=== PATIENT | female | born 1960 | race Caucasian/White ===

== ENCOUNTER → 2020-04-24 08:04 | Outpatient (BNVA) | payer OTHER, SELFPAY | PROVIDERS: PCP Specialist; Referring Provider Specialist; Visit Provider Student in an Organized Health Care Education/Training Program | DX: Z76.89 Persons encountering health services in other specified circumstances (principal) ==

== ENCOUNTER → 2021-04-25 07:55 | Outpatient (BNVA) | payer OTHER, SELFPAY | PROVIDERS: PCP Specialist; Visit Provider Nurse Practitioner Family ==

== ENCOUNTER → 2022-04-25 07:53 | Outpatient (BNVA) | payer OTHER, SELFPAY | PROVIDERS: PCP Specialist; Visit Provider Nurse Practitioner Family | DX: Z13.89 Encounter for screening for other disorder (principal) ==

== ENCOUNTER → 2022-05-02 08:03 | Outpatient (BNVA) | payer OTHER, SELFPAY | PROVIDERS: PCP Specialist; Visit Provider Nurse Practitioner Family | DX: Z13.89 Encounter for screening for other disorder (principal) ==

== ENCOUNTER 2022-07-03 07:57 | Outpatient (REF) | payer OTHER, SELFPAY ==
[2022-07-03 11:28] LABS: Amphetamine Screen Urine Not Detected (Not Detect); Barbiturates, Urine Not Detected (Not Detect); Benzodiazepines Screen Urine Not Detected (Not Detect); Cannabinoid Screen Urine Not Detected (Not Detect); Cocaine Screen Urine Not Detected (Not Detect); Fentanyl, urine Not Detected (Not Detect); Opiate Screen Urine Not Detected (Not Detect); Phencyclidine Screen Urine Not Detected (Not Detect)
== END 2022-07-03 07:58 | disposition home or self-care (01) ==
LOC: HO.10HDL 07:57
PROVIDERS: Visit Provider Nurse Practitioner Family
DX: Z51.81 Encounter for therapeutic drug level monitoring (principal); Z79.899 Other long term (current) drug therapy
CPT/HCPCS: 80307; 80373

== ENCOUNTER 2022-11-21 10:05 | Outpatient (AMB) | payer OTHER, SELFPAY ==
[2022-11-21 10:06] VITALS: BP 116/62; PULSE 99; TEMP 2.9; TEMP 37.2; O2SAT 94; BMI 25.4
--- NOTE | 2022-11-21 10:06 | A.OFFVIS_ITS ---
Intake Vital Signs 11/21/22 10:06 Height 5 ft 2.5 in Weight 140 lb 14.006 oz BMI 25.4 BP 116/62 Blood Pressure Location Rt brachial Position Sitting Pulse 99 Pulse Source Pulse Oximeter Temp 37.2 F L Temp Source Skin Pulse Oximetry (%) 94 Intake Visit Reasons: FM Intake Note: Pt seen to for FM follow up. Topographical Field Assistant Required: No Accompanied by: Self / Same As Patient Allergies prochlorperazine [From Compazine] Allergy (Verified 11/21/22 10:08) Nausea Medication List - Last Reconciled 11/21/22 by Sherrill Brink MD amitriptyline 50 mg (2 x 25 mg) PO BEDTIME atorvastatin 20 mg PO DAILY tramadol 50 mg PO Q6H HPI HPI Comments History of Present Illness Details 62yoF presents for follow-up of fibromyalgia. She was last seen by Hedy Coronado 05/12. Continues on tramadol 50 mg 4 times a day. She has been having intermittent pain on the outside of her left hip.. Usually worse at night. Improves as she gets up and walks. Mentions that she has CLL and her most recent white [place] was [address]. She states that she might be starting treatment for CLL if her hemoglobin or platelets drop. [facility] Medical History Chronic lymphocytic leukemia Fibromyalgia Surgical History Hx of tubal ligation S/P removal of left ovary Social History Alcohol intake: never Cigarettes Per Day: 10 Years Smoked: 20 Review of Systems [facility] myalgias and Reports arthralgias Physical Exam Vital Signs: Last Vital Signs Temp 37.2 F L 11/21/22 10:06 Pulse 99 11/21/22 10:06 BP 116/62 11/21/22 10:06 Pulse Ox 94 11/21/22 10:06 BMI result Body Mass Index 25.4 Const General: cooperative, healthy appearing and comfortable Nutritional Appearance: average body habitus Orientation/consciousness: patient oriented x3 Limitations: no limitations HEENT Head: Yes normocephalic and Yes atraumatic Mouth: moist mucous membranes Resp Effort & Inspection: normal respiratory effort and able to speak in complete sentences Auscultation: clear to auscultation bilaterally Cardio Rate: regular rate Rhythm: regular rhythm GI Inspection: No distended Palpation (GI): Soft to palpation and nontender Neuro General: patient oriented x3 Extrem Other: Osteoarthritic changes of both hands with Casandra's and Heberden's nodes. Nontender. Mild Left trochanteric bursa area tenderness Assessment & Plan Assessment & Plan (1) Fibromyalgia: Code(s): M79.7 - Fibromyalgia Plan: Patient's fibromyalgia appears stable.? Continue amitriptyline and tramadol.? Follow-up 6 months or sooner if needed. (2) Trochanteric bursitis, left hip: Code(s): M70.62 - Trochanteric bursitis, left hip Plan: I provided patient with a printout of home exercises for greater trochanteric pain syndrome Coding Level of Care Code Est Pt Level 3 (79935) Diagnoses Fibromyalgia M79.7 Trochanteric bursitis, left hip M70.62
== END 2022-11-21 10:32 | disposition home or self-care (01) ==
PROVIDERS: PCP Specialist; Visit Provider Student in an Organized Health Care Education/Training Program
DX: M79.7 Fibromyalgia (principal); M70.62 Trochanteric bursitis, left hip
CPT/HCPCS: 99213

== ENCOUNTER → 2022-11-21 10:05 | Outpatient (BNVA) | payer OTHER, SELFPAY | PROVIDERS: PCP Specialist; Visit Provider Student in an Organized Health Care Education/Training Program ==

== ENCOUNTER 2023-06-15 07:41 | Outpatient (AMB) | payer OTHER, SELFPAY ==
[2023-06-15 07:46] VITALS: BP 124/68; PULSE 101; TEMP 36.5; O2SAT 95; BMI 24.4
--- NOTE | 2023-06-15 07:46 | A.OFFVIS_ITS ---
Intake Vital Signs 06/15/23 07:46 Height 5 ft 2.5 in Weight 135 lb 12.876 oz BMI 24.4 BP 124/68 Blood Pressure Location Rt brachial Position Sitting Pulse 101 H Pulse Source Pulse Oximeter Temp 97.7 F Temp Source Skin Pulse Oximetry (%) 95 Oxygen Delivery Method Room Air Intake Visit Reasons: FMS Intake Note: Patient last seen 11/21/22 presents today for follow up. Pole Cutter Required: No Accompanied by: Self / Same As Patient Allergies prochlorperazine [From Compazine] Allergy (Verified 06/15/23 07:51) Nausea Medication List - Last Reconciled 06/15/23 by Sherrill Brink MD amitriptyline 50 mg (2 x 25 mg) PO BEDTIME atorvastatin 20 mg PO DAILY tramadol 50 mg PO Q6H HPI HPI Comments History of Present Illness Details 62yoF presents for follow-up of fibromyalgia. She was last seen 11/2022 Continues on tramadol 50 mg 4 times a day. States that her pain is a little bit worse recently. She believes she has multiple allergies. She is snoring at night and will be evaluated by ENT soon. She does not believe that she stops breathing or gasps for air. Mentions that she has CLL and her most recent white count was 95 K and not coming down. She states that she might be starting treatment for CLL if her hemoglobin or platelets drop. [facility] Medical History Chronic lymphocytic leukemia Fibromyalgia Surgical History S/P removal of left ovary Hx of tubal ligation Social History Alcohol intake: never Patient Tobacco Use Status: Current everyday Tobacco user Cigarettes Per Day: 10 Years Smoked: 20 Review of Systems [facility] Reports myalgias and Reports arthralgias Physical Exam Vital Signs: Last Vital Signs Temp 97.7 F 06/15/23 07:46 Pulse 101 H 06/15/23 07:46 BP 124/68 06/15/23 07:46 Pulse Ox 95 06/15/23 07:46 Oxygen Delivery Method Room Air 06/15/23 07:46 BMI result Body Mass Index 24.4 Const General: cooperative, healthy appearing and comfortable Nutritional Appearance: average body habitus Orientation/consciousness: patient oriented x3 Limitations: no limitations HEENT Head: Yes normocephalic and Yes atraumatic Resp Effort & Inspection: normal respiratory effort and able to speak in complete sentences Cardio Rate: regular rate Rhythm: regular rhythm GI Inspection: No distended Palpation (GI): Soft to palpation and nontender Neuro General: patient oriented x3 Extrem Other: Osteoarthritic changes of both hands with Casandra's and Heberden's nodes. Nontender. Multiple fibromyalgia tender points Assessment & Plan Assessment & Plan (1) Fibromyalgia: Code(s): M79.7 - Fibromyalgia Plan: 62-year-old female with fibromyalgia returns for follow-up. On tramadol 50 mg q.i.d.. Doing a little worse overall. Has been snoring recently. States that she will be evaluated by ENT soon. I suggested a sleep study to rule out obstructive sleep apnea Plan I spent 15 minutes reviewing patient's chart, evaluating patient, counseling patient and documenting in the chart Medications: Refilled tramadol 50 mg PO Q6H 120 tabs 5RF M70.62 - Trochanteric bursitis, left hip Coding Level of Care Code Est Pt Level 3 (41412) Diagnoses Fibromyalgia M79.7
== END 2023-06-15 08:34 | disposition home or self-care (01) ==
PROVIDERS: PCP Specialist; Visit Provider Student in an Organized Health Care Education/Training Program
DX: M79.7 Fibromyalgia (principal)
CPT/HCPCS: 99213

== ENCOUNTER → 2023-06-15 07:41 | Outpatient (BNVA) | payer OTHER, SELFPAY | PROVIDERS: PCP Specialist; Visit Provider Student in an Organized Health Care Education/Training Program ==

== ENCOUNTER 2023-12-14 07:57 | Outpatient (AMB) | payer OTHER, SELFPAY ==
--- NOTE | 2023-12-14 08:05 | MHC.OFFVIS ---
Vital Signs 12/14/23 08:07 Height 5 ft 2.5 in Weight 132 lb 7.965 oz BMI 23.8 BP 112/60 Blood Pressure Location Rt brachial Position Sitting Pulse 74 Pulse Source Pulse Oximeter Pulse Oximetry (%) 97 Oxygen Delivery Method Simple Mask Intake Visit Reasons: FMS Intake Note: Patient presents for FMS. Allergies prochlorperazine [From Compazine] Allergy (Verified 12/14/23 08:06) Nausea Medication List - Last Reconciled 12/14/23 by Sherrill Brink MD amitriptyline 50 mg (2 x 25 mg) PO BEDTIME atorvastatin 20 mg PO DAILY tramadol 50 mg PO Q6H HPI Comments Details: 63yoF presents for follow-up of fibromyalgia. She was last seen 05/2023 Continues on tramadol 50 mg 4 times a day. States that her pain fluctuates. But stable overall. She states that she might be starting treatment for CLL if her hemoglobin drops below 10 or platelets drop. [facility] Medical History Chronic lymphocytic leukemia Fibromyalgia Surgical History S/P removal of left ovary Hx of tubal ligation Social History Alcohol intake: never Patient Tobacco Use Status: Current everyday Tobacco user Cigarettes Per Day: 10 Years Smoked: 20 Review of Systems [facility] myalgias and Reports arthralgias Physical Exam Vital Signs: Last Vital Signs Pulse 74 12/14/23 08:07 BP 112/60 12/14/23 08:07 Pulse Ox 97 12/14/23 08:07 Oxygen Delivery Method Simple Mask 12/14/23 08:07 BMI result Body Mass Index 23.8 Const General: cooperative, healthy appearing and comfortable Nutritional Appearance: average body habitus Orientation/consciousness: patient oriented x3 Limitations: no limitations HEENT Head: Yes normocephalic and Yes atraumatic Resp Effort & Inspection: normal respiratory effort and able to speak in complete sentences Cardio Rate: regular rate Rhythm: regular rhythm GI Inspection: No distended Palpation (GI): Soft to palpation and nontender Neuro General: patient oriented x3 Extrem Other: Osteoarthritic changes of both hands with Casandra's and Heberden's nodes. Nontender. Multiple fibromyalgia tender points Assessment & Plan Assessment & Plan (1) Fibromyalgia: Code(s): M79.7 - Fibromyalgia Category: Medical Plan: 63-year-old female with fibromyalgia returns for follow-up. On tramadol 50 mg q.i.d.. Symptoms stable overall. Tramadol refilled. Follow-up in 6 months Plan I spent 15 minutes reviewing patient's chart, evaluating patient, counseling patient and documenting in the chart Medications: Refilled tramadol 50 mg PO Q6H 120 tabs 5RF M70.62 - Trochanteric bursitis, left hip Coding Level of Care Code Est Pt Level 3 (94366) Diagnoses Fibromyalgia M79.7
[2023-12-14 08:07] VITALS: BP 112/60; PULSE 74; O2SAT 97; BMI 23.8
== END 2023-12-14 08:37 | disposition home or self-care (01) ==
PROVIDERS: PCP Specialist; Visit Provider Student in an Organized Health Care Education/Training Program
DX: M79.7 Fibromyalgia (principal)
CPT/HCPCS: 99213

== ENCOUNTER → 2023-12-14 07:57 | Outpatient (BNVA) | payer OTHER, SELFPAY | PROVIDERS: PCP Specialist; Visit Provider Student in an Organized Health Care Education/Training Program ==

== ENCOUNTER → 2024-06-15 07:57 | Outpatient (BNVA) | payer OTHER, SELFPAY | PROVIDERS: PCP Specialist; Visit Provider Student in an Organized Health Care Education/Training Program ==

== ENCOUNTER 2024-06-15 07:58 | Outpatient (AMB) | payer OTHER, SELFPAY ==
--- OUTSIDE RECORDS SUMMARY | 2024-06-15 08:03 | XMS_ITS | Clinical Summary ---
Author Organization [facility] [address] Address [address] [place] [address] Phone Care Team Providers Care Industrial Commercial Groundskeeper Name Role Phone Jus Reed MD Primary Care Provider [phone] Allergies Active Allergy Reactions Criticality Noted Date Comments Prochlorperazine Nausea Only Low 08/04/2018 Medications amitriptyline (ELAVIL) 25 mg tablet Take 2 tablets (50 mg total) by mouth at bedtime. 06/26/2017 Active atorvastatin (LIPITOR) 20 mg tablet Take 1 tablet (20 mg total) by mouth 1 (one) time each day. 04/13/2023 Active cetirizine (ZyrTEC) 10 mg tablet Take 1 tablet (10 mg total) by mouth 1 (one) time each day. Active traMADoL (ULTRAM) 50 mg tablet Take 1 tablet (50 mg total) by mouth every 6 hours as needed. Max Daily Amount: 200 mg Active multivitamin (MULTIPLE VITAMINS ORAL) Take by mouth 1 (one) time each day. Active Active Problems Problem Noted Date Diagnosed Date Prediabetes 03/23/2023 Cigarette smoker 09/12/2020 CLL (chronic lymphocytic leukemia) 12/02/2018 Fibromyalgia 07/21/2018 Mixed hyperlipidemia 05/26/2017 Encounters Date Type Department Care Team Description 05/20/2024 Telephone Hematology and Oncology [address] [phone] Razia Everett MD 05/18/2024 Telephone Hematology and Oncology [address] [phone] Kvng Carvalho MD from Last 3 Months Surgical History Surgery Date Site/Laterality Comments SHOULDER SURGERY 2000 Left PROCEDURE:SHOULDER SURGERY;COMMENT:tumor excision FOOT NEUROMA SURGERY 2002 Left PROCEDURE:FOOT NEUROMA SURGERY COLONOSCOPY PROCEDURE:COLONOSCOPY SALPINGOOPHORECTOMY 08/06/2018 N/A PROCEDURE:LAPAROSCOPIC SALPINGOOPHERECTOMY;COMMENT:Procedure: LAPAROSCOPY SALPINGO OOPHERECTOMY; Surgeon: Lucie Quezada MD; Location: [facility]; Service: Gynecology; Laterality: N/A; HYSTEROSCOPY 08/06/2018 N/A PROCEDURE:HYSTEROSCOPY;COMMENT:Procedu re: HYSTEROSCOPY D&C; Surgeon: Lucie Quezada MD; Location: [facility]; Service: Gynecology; Laterality: N/A; Medical History Medical History Date Comments Fibromyalgia DX:Fibromyalgia Hypercholesteremia DX:Hyperchole steremia GERD (gastroesophageal reflux disease) DX:GERD (gastroesophageal reflux disease) Depression DX:Depression Lymphoma (CMS/HCC) DX:Lymphoma ( HCC) Family History Medical History Relation Name Comments Heart disease Father Leukemia Father Heart disease Mother Relation Name Status Comments Father Mother Social History Tobacco Use Types Packs/Day Years Used Date Smoking Tobacco: Every Day Cigarettes Smokeless Tobacco: Never Alcohol Use Standard Drinks/Week Comments No 0 (1 standard drink = 0.6 oz pur e alcohol) Comments Unknown Sex and Gender Information Value Date Recorded Sex Assigned at Not on file Legal Sex Female 7:33 AM EST Gender Identity Not on file Sexual Orientation Not on file Obstetrics History Last Filed Vital Signs Vital Sign Reading Time Taken Comments Blood Pressure 128/45 02/23/2024 3:58 PM EST Pulse 79 02/23/2024 3:58 PM EST Temperature 36.3 ??C (97.4 ??F) 02/23/2024 3:58 PM ES T Respiratory Rate 18 02/23/2024 3:58 PM EST Oxygen Saturation 96% 02/23/2024 3:58 PM EST Inhaled Oxygen Concentration - - Weight 58.7 kg (129 lb 6.4 oz) 02/23/2024 3:58 P M EST Height 160 cm (5' 3 ) 03/23/2023 2:22 PM EST Body Mass Index 22.92 03/23/2023 2:22 PM EST Plan of Treatment Upcoming Encounters Date Type Department Care Team (Late st Contact Info) Description 07/14/2024 4:00 PM EDT Clinic Lab Collection [facility] [address] [place] [phone] 07/14/2024 4:20 PM EDT Office Visit [facility] [place] [address] [place] [phone] Razia Everett MD [address] [place] [id number] Health Maintenance Due Date Last Done Comments Breast Cancer Screening 1960 COVID-19 Vaccine (#1) 1966 DTaP,Tdap,and Td Vaccines (1 - Tdap) 1980 Pneumococcal Vaccine: 50+ Years (1 of 2 - PCV) 1980 Pneumococcal Vaccine: Pediatrics (0 to 5 Years) and At-Risk Patients (6 to 64 Years) (1 of 2 - PCV) 1980 Zoster Vaccines (1 of 2) 1980 Cervical Cancer Screening: P ap Smear 10/12/2020 10/12/2017, 10/12/2017 Colorectal Cancer Screening: Colonoscopy 03/27/2022 Depression Screening 03/27/2022 HIV Screening 03/27/2022 Hepatitis C Screening 03/27/2022 Social Influencers of Health Screening 03/27/2022 Influenza Vaccine (#1) 2023 Cholesterol Screening (Lipid Panel) 03/16/2028 03/16/2023 RSV Immunization Patients 60 + Years Old (1 - 1-dose 75+ series) 2036 HIB Vaccines Aged Out No longer eligi ble based on patient's age to complete this topic HPV Vaccines Aged Out No longer eligi ble based on patient's age to complete this topic Hepatitis A Vaccines Aged Out No long er eligible based on patient's age to complete this topic Hepatitis B Vaccines Aged Out No long er eligible based on patient's age to complete this topic IPV Vaccines Aged Out No longer eligi ble based on patient's age to complete this topic MMR Vaccines Aged Out No longer eligi ble based on patient's age to complete this topic Meningococcal ACWY Vaccine Aged Out N o longer eligible based on patient's age to complete this topic Meningococcal B Vacine Aged Out No lo nger eligible based on patient's age to complete this topic RSV Immunization Patients Under 20 months Aged Out No longer eligible b ased on patient's age to complete this topic Varicella Vaccines Aged Out No longer eligible based on patient's age to complete this topic Procedures Procedure Name Priority Date/Time Associated Diagnosis Comments MANUAL DIFFERENTIAL Routine 05/18/2024 2 :08 PM EST Iron deficiency anemia, unspecified iron deficiency anemia type CBC WITH AUTO DIFFERENTIAL Routine 05/18/2024 2:08 PM EST Iron deficiency anemia, unspecified iron deficiency anemia type FERRITIN Routine 05/18/2024 2:08 PM EST Chronic lymphocytic leukemia of B-cell type not having achieved remission (CMS/HCC) Iron deficiency anemia, unspecified iron deficiency anemia type IRON AND TIBC Routine 05/18/2024 2:08 PM EST Chronic lymphocytic leukemia of B-cell type not having achieved remission (CMS/HCC) Iron deficiency anemia, unspecified iron deficiency anemia type CBC AND DIFFERENTIAL Routine 05/18/2024 2:08 PM EST Iron deficiency anemia, unspecified iron deficiency anemia type LIPID PANEL Routine 03/16/2023 PAP SMEAR Routine 10/12/2017 4:00 PM EDT from Last 3 Months or Most Recently Relevant to Health Maintenance Results * (ABNORMAL) CBC auto differential (05/18/2024 2:08 PM EST) WBC 115.8(HH) 4.0 - 10.5 K/mcL LAB HEMETOLOGY METHOD 05/18/2024 8:42 PM EST [facility] Comment:Verified by repeat a nalysis RBC 4.13(L) 4.20 - 5.40 M/mcL LAB HEMETOLOGY METHOD 05/18/2024 8:42 PM EST [facility] Hemoglobin 11.9(L) 12.5 - 16.0 g/dL LAB HEMETOLOGY METHOD 05/18/2024 8:42 PM EST [facility] Hematocrit 38.3 37.0 - 47.0 % LAB HEMETOLOGY METHOD 05/18/2024 8:42 PM EST [facility] MCV 92.8 78.0 - 100.0 FL LAB HEMETOLOGY METHOD 05/18/2024 8:42 PM EST [facility] MCH 28.9 25.0 - 33.0 pcg LAB HEMETOLOGY METHOD 05/18/2024 8:42 PM EST [facility] MCHC 31.1(L) 32.0 - 36.0 g/dL LAB HEMETOLOGY METHOD 05/18/2024 8:42 PM EST [facility] RDW 14.7 12.1 - 16.2 % LAB HEMETOLOGY METHOD 05/18/2024 8:42 PM EST [facility] Platelets 207 150 - 450 K/mcL LAB HEMETOLOGY METHOD 05/18/2024 8:42 PM EST [facility] MPV 8.1 7.4 - 11.4 FL LAB HEMETOLOGY METHOD 05/18/2024 8:42 PM EST [facility] Blood Venous blood specimen / Unknown Venipuncture / Unknown 05/18/2024 2:08 PM EST 05/18/2024 2:08 PM EST us Razia Everett MD LAB BLOOD ORDERABLES Fin al Result [facility] [address] [place] [address], * (ABNORMAL) Iron and TIBC (05/18/2024 2:08 PM EST) Iron 58 37 - 170 mcg/dL LAB CHEMISTRY METHOD 05/18/2024 6:39 PM EST [facility] UIBC 399(H) 155 - 355 mcg/dL LAB CHEMISTRY METHOD 05/18/2024 6:39 PM EST [facility] TIBC 457(H) 250 - 450 mcg/dL LAB CHEMISTRY METHOD 05/18/2024 6:39 PM EST [facility] Iron Saturation 13(L) 20 - 45 % LAB CHEMISTRY METHOD 05/18/2024 6:39 PM EST [facility] Blood Venous blood specimen / Unknown Venipuncture / Unknown 05/18/2024 2:08 PM EST 05/18/2024 2:08 PM EST Razia Everett MD LAB BLOOD ORDERABLES Fin al Result [facility] [address] [place] [address], * (ABNORMAL) Manual differential (05/18/2024 2:08 PM EST) Neutrophils % 1.0(L) 44.0 - 74.0 % LAB HEMETOLOGY METHOD 05/18/2024 8:42 PM [facility] Lymphocytes % 95.0(H) 20.0 - 48.0 % LAB HEMETOLOGY METHOD 05/18/2024 8:42 PM [facility] Comment:Differential perform ed on smear utilizing albumin Monocytes % 1.0(L) 2.0 - 12.0 % LAB HEMETOLOGY METHOD 05/18/2024 8:42 PM [facility] Eosinophils % 2.0 0.0 - 6.0 % LAB HEMETOLOGY METHOD 05/18/2024 8:42 PM [facility] Basophils % 1.0 0.0 - 2.0 % LAB HEMETOLOGY METHOD 05/18/2024 8:42 PM [facility] Neutrophils Absolute 1.16(L) 1.80 - 7.80 K/mcL LAB HEMETOLOGY METHOD 05/18/2024 8:42 PM EST [facility] Lymphocytes Absolute 110.01(H) 1.00 - 3.20 K/mcL LAB HEMETOLOGY METHOD 05/18/2024 8:42 PM EST [facility] Monocytes Absolute 1.16(H) 0.00 - 0.80 K/mcL LAB HEMETOLOGY METHOD 05/18/2024 8:42 PM EST [facility] Eosinophils Absolute 2.32(H) 0.00 - 0.50 K/mcL LAB HEMETOLOGY METHOD 05/18/2024 8:42 PM EST [facility] Basophils Absolute 1.16(H) 0.00 - 0.20 K/mcL LAB HEMETOLOGY METHOD 05/18/2024 8:42 PM EST [facility] Smudge Cells Present LAB HEMETOLOGY METHOD 05/18/2024 8:42 PM EST [facility] Polychromasia Present Occasional LAB HEMETOLOGY METHOD 05/18/2024 8:42 PM EST [facility] Spherocytes Present Occasional LAB HEMETOLOGY METHOD 05/18/2024 8:42 PM EST [facility] Platelet Estimate Normal LAB HEMETOLOGY METHOD 05/18/2024 8:42 PM EST [facility] Blood Venous blood specimen / Unknown Venipuncture / Unknown 05/18/2024 2:08 PM EST 05/18/2024 2:08 PM EST Razia Everett MD LAB BLOOD ORDERABLES Fin al Result [facility] [address] [place] [address], [place] [phone] * Ferritin (05/18/2024 2:08 PM EST) Ferritin 15 10 - 120 ng/mL LAB CHEMISTRY METHOD 05/18/2024 6:54 PM EST [facility] Blood Venous blood specimen / Unknown Venipuncture / Unknown 05/18/2024 2:08 PM EST 05/18/2024 2:08 PM EST Razia Everett MD LAB BLOOD ORDERABLES Fin al Result [facility] [address] [place] [address], [place] [phone] * (ABNORMAL) Lipid panel (03/16/2023) [facility] Triglycerides 164 >=150 mg/dL Cholesterol 173(A) >=200 mg/dL HDL 62 >=50 mg/dL LDL Cholesterol 85(A) >=100 mg/dL Blood Venous blood specimen / Unknown [facility] Provider LAB BLOOD ORDERABLES [place] l Result * Pap smear (10/12/2017 4:00 PM EDT) [facility] Case Results Patient Name: JOSE HANNA MR#: [id number] Collected Date: 10/12/2017 Reported Date: 10/19/2017 Specimen #[id number] Final Diagnosis Satisfactory for evaluation. ??Endocervical transformation zone component present. Negative for Intraepithelial Lesion or Malignancy. Reactive cellular changes noted. ?? Clinical Diagnosis Z01.419 Source: A: ThinPrep Imaged Pap Cervical-SC B: HPV Mandatory Electronically Signed Out Franca Gay MD Addenda/Procedures HPV DNA PROBE, MANDATORY Ordered: ?? 10/13/2017 Reported: ??10/14/2017 HPV HIGH RISK: NEGATIVE None of the following High Risk human papillomavirus (HPV) types has been detected: 16,18,31,33,35,39, 45,51,52,56,58,59, 66,and 68. ??The Aptima HPV nucleic acid amplification assay manufactured by [facility] and performed on the [employer] how [employer] [place] System was used for the qualitative detection of E6/E7 viral messenger RNA (mRNA) from 14 high-risk types of (HPV) in cervical specimens. <<NOTE>> Clinical guidelines for follow up of patients screened with HPV testing can be found in the following reference: Thiago WK , et al. Use of primary high risk human papillomavirus testing for cervical cancer screening: Interim clinical guidance, Gynecol Oncol. 2015 May, 136(2):178-82. Procedure/Addend um Electronically Signed Out By System Interface Note: The Pap test is a screening test with an inherent false negative rate. Automated prescreening of all liquid based specimens is performed by the [employer] System unless otherwise stated. Test Performed by: [address] ??[id number] Hiram López M.D. Director HISTORICAL TESTING LAB RESULTING AGENCY Comment:MR#: [id number] 10/12/2017 4:00 PM EDT Irma Whittington MD LAB CYTOLOGY ORDERABLES Final Result HISTORICAL TESTING LAB RESULTING AGENCY from Last 3 Months or Most Recently Relevant to Health Maintenance Insurance [facility] Care Teams Industrial Commercial Groundskeeper Relationship Specialty Start Date End Date Jus Reed MD PCP - General Internal Medicine 06/27/16
--- OUTSIDE RECORDS SUMMARY | 2024-06-15 08:03 | XMS_ITS | Clinical Summary ---
Author Organization [facility] Address [address] [place] [id number] Care Team Providers Care Smash Hand Name Role Phone Jus Reed MD Primary Care Provider Unavailab le Allergies Active Allergy Reactions Criticality Noted Date Comments Prochlorperazine Nausea Only Low 08/04/2018 Medications Medication Sig Dispensed Refills Start Date End Date Status amitriptyline (ELAVIL) tablet 25 mg TAKE 2 TABLETS BY MOUTH ONCE A DAY AT BEDTIME 5 06/26/2017 Active traMADol (ULTRAM) 50 MG tablet Take 50 mg by mouth every 6 (six) hours as needed for pain. 0 Active Multiple Vitamins-Minerals (MULTIVITAMIN ADULT PO) Take by mouth. 0 Active cetirizine (ZyrTEC) 10 MG tablet Take 1 tablet (10 mg total) by mouth daily. 0 Active predniSONE (DELTASONE) tablet 10 mg Take 4 tablets by mouth with food daily for 3 days, then 3 tablets for 3 days, then 2 tablets for 3 days, then 1 tablets for 3 days 39 tablet 0 09/03/2023 Active atorvastatin (LIPITOR) tablet 20 mg TAKE 1 TABLET BY MOUTH EVERY DAY 90 tablet 0 10/26/2023 Active Active Problems Problem Noted Date Diagnosed Date Prediabetes 03/23/2023 Cigarette smoker 09/12/2020 CLL (chronic lymphocytic leukemia) 12/02/2018 Fibromyalgia 07/21/2018 Mixed hyperlipidemia 05/26/2017 Resolved Problems Problem Noted Date Diagnosed Date Resolved Date Lymphocytosis 10/07/2017 12/02/2018 Family History Medical History Relation Name Comments Heart disease Father Leukemia Father Heart disease Mother Relation Name Status Comments Father Mother Social History Tobacco Use Types Packs/Day Years Used Date Smoking Tobacco: Every Day Cigarettes 0.5 20 Smokeless Tobacco: Never Tobacco Cessation:Ready to Q uit: Not Asked; Counseling Given: Not Answered Comments:1/2 a pack a day Alcohol Use Standard Drinks/Week Comments No 0 (1 standard drink = 0.6 oz pur e alcohol) Sex and Gender Information Value Date Recorded Sex Assigned at Female 08/03/2018 10:52 AM EDT Gender Identity Not on file Sexual Orientation Not on file Job Start Date Occupation Industry Not on file Not on file Not on file Last Filed Vital Signs Vital Sign Reading Time Taken Comments Blood Pressure 121/50 01/14/2024 12:05 PM EDT Pulse 70 01/14/2024 12:05 PM EDT Temperature 36.2 ??C (97.2 ??F) 01/14/2024 12:05 PM E DT Respiratory Rate 18 01/14/2024 12:05 PM EDT Oxygen Saturation 99% 01/14/2024 12:05 PM EDT Inhaled Oxygen Concentration - - Weight 59.2 kg (130 lb 9.6 oz) 01/14/2024 12:05 PM EDT Height 160 cm (5' 3 ) 03/23/2023 2:22 PM EST Body Mass Index 23.13 03/23/2023 2:22 PM EST Plan of Treatment Health Maintenance Due Date Last Done Comments Hepatitis C Screening 1961 COVID-19 Vaccine (#1) 1966 Pneumococcal Vaccine (1 of 2 - PCV) 07/05/1967 Depression Screening 1973 Tobacco Cessation Counseling 07/05/1979 DTap / Tdap / Td (1 - Tdap) 1980 Shingrix-Zoster Vaccine (1 of 2) 1980 Colon Cancer Screening (Colonoscopy) 2006 Breast Cancer Screening (Mammogram) 07/05/2011 Cervical Cancer Screening (Pap Smear) 10/12/2020 10/12/2017, 12/06/2012 RSV Adult > 60+ Yrs or (1 - Risk 60-74 years 1-dose series) 2021 BMI Counseling 05/29/2023 05/29/2022, 05/0 09/2021, 10/05/2020, Additional history exists Influenza Vaccine (#1) 2023 Preventative Health Evaluation 03/23/2024 03/23/2023, 02/11/2022, 09/12/2020, Additional history exists Hepatitis B Vaccines Aged Out No long er eligible based on patient's age to complete this topic RSV Ped < 20 months Aged Out No longe r eligible based on patient's age to complete this topic Advance Directives For more information, please contact: [phone] Latest Code Status on File Code Status Date Activated Date Inactivated Comments Full Code 08/06/2018 5:40 AM 08/06/2018 8:14 PM This code status was ascertained in the following way: discussion with patient . Care Teams Smash Hand Relationship Specialty Start Date End Date Jus Reed MD PCP - General Internal Medicine 06/27/16
--- OUTSIDE RECORDS SUMMARY | 2024-06-15 08:03 | XMS_ITS | Encounter Summary ---
Author Organization [facility] Address [address] [place] [address] Care Team Providers Care Medical Case Worker Name Role Phone Jus Reed MD Primary Care Provider [phone] Encounter Details Date Type Department Care Team ([facility] st Contact Info) Description 05/18/2024 Telephone Hematology and Oncology - [address] [phone] Kvng Carvalho MD [address] [place] [phone] Social History Tobacco Use Types Packs/Day Years [...] on file Sexual Orientation Not on file documented as of this encounter Progress Notes * Kvng Carvalho MD - 05/18/2024 8:25 PM EST Hematology/oncology on-call fellow was notified about critical results at 7:31 PM. Lab Results Component Value Date WBC 115.8 (HH) 05/18/2024 HGB 11.9 (L) 05/18/2024 HCT 38.3 05/18/2024 MCV 92.8 05/18/2024 PLT 207 05/18/2024 She has a history of CLL on active monitoring, with a CBCs revealed lymphocyte predominant leukocytosis, her current CBCs are not far from her baseline. I will inform her primary oncologist about theCBC results. Hematology and oncology fellow documented in this encounter Plan of Treatment Upcoming Encounters Date Type Department Care Team (Late st Contact Info) Description 07/14/2024 4:00 PM EDT Clinic Lab Collection [place] [facility] [address] [place] [address] 07/14/2024 4:20 PM EDT Office Visit [place] [facility] [address] [place] [id number] Razia Everett MD [address] [place] [id number] documented as of this encounter Visit Diagnoses Not on filedocumented in this encounter Care Teams Medical Case Worker Relationship Specialty Start Date End Date Jus Reed MD PCP - General Internal Medicine 06/27/16 documented as of this encounter
--- OUTSIDE RECORDS SUMMARY | 2024-06-15 08:03 | XMS_ITS ---
Author Name [facility] Organization Unknown Results Test Name/Text Value Interpretation Date Range Source Lg Platelets Bld Ql Auto Normal Normal [id number] [facility] Polychromasia Present Occasional Normal [id number] [facility] RBC Ur Ql Auto Occasional Normal [id number] C [facility] Smudge Cells/leuk NFr Bld Manual Present Normal 754303097358 [facility] Monocytes/leuk NFr Bld Manual 1% Below low normal [id number] 2 - 12 [facility] Lymphocytes # Bld Manual 110.01K/mcL Above high normal [id number] 1 - 3.2 [facility] Eosinophil/leuk NFr Bld Manual 2% Normal [id number] 0 - 6 [facility] Monocytes # Bld Manual 1.16K/mcL Above high normal [id number] 0 - 0.8 [facility] Basophils/leuk NFr Bld Manual 1% Normal [id number] 0 - 2 [facility] Lymphocytes/leuk NFr Bld Manual 95% Above high normal [id number] 20 - 48 [facility] Neuts Seg # Bld Manual 1.16K/mcL Below low normal [id number] 1.8 - 7.8 [facility] Eosinophil # Bld Manual 2.32K/mcL Above high normal [id number] 0 - 0.5 [facility] Basophils # Bld Manual 1.16K/mcL Above high normal [id number] 0 - 0.2 [facility] Neuts Seg/leuk NFr Bld Manual 1% Below low normal [id number] 44 - 74 [facility] Hgb Bld-mCnc 11.9g/dL Below low normal [id number] 12.5 - 16 [facility] MCHC RBC Auto-mCnc 31.1g/dL Below low normal [id number] 3 2 - 36 [facility] PMV Bld Auto 8.1FL Normal [id number] 7.4 - 11.4 [facility] RBC # Bld Auto 4.13M/mcL Below low normal [id number] 4.2 - 5.4 [facility] WBC # Bld Auto 115.8K/mcL Critically high [id number] 4 - 1 0.5 [facility] RDW RBC Auto-Rto 14.7% Normal [id number] 12.1 - 16.2 [facility] MCV RBC Auto 92.8FL Normal [id number] 78 - 100 [facility] MCH RBC Qn Auto 28.9pcg Normal [id number] 25 - 33 [facility] Hct VFr Bld Auto 38.3% Normal [id number] 37 - 47 [facility] Platelet # Bld Auto 207K/mcL Normal [id number] 150 - 450 [facility] Ferritin SerPl-mCnc 15ng/mL Normal [id number] 10 - 120 [facility] TIBC SerPl-mCnc 457mcg/dL Above high normal [id number] 250 - 450 [facility] UIBC SerPl-mCnc 399mcg/dL Above high normal [id number] 155 - 355 [facility] Iron SerPl-mCnc 58mcg/dL Normal [id number] 37 - 170 [facility] Iron Satn MFr SerPl 13% Below low normal [id number] 20 - 45 [facility] MICROCYTES PRESENT Normal [id number] [facility] DIFFERENTIAL TYPE MANUAL Normal [id number] [facility] OVALOCYTES OCCASIONAL Normal [id number] [facility] NEUTS BAND NFR BLD MANUAL 1% Normal [id number] 0 - 15 [facility] MONOCYTES NFR BLD MANUAL 2% Normal [id number] 2 - 12 [facility] POLYS NFR BLD MANUAL 3% Below low normal [id number] 44 - 74 [facility] LYMPHOCYTES NFR BLD MANUAL 94% Above high normal [id number] 20 - 48 [facility] PLATELET NO. BLD AUTO 203K/uL Normal [id number] 150 - 450 [facility] RBC NO. BLD AUTO 4.24M/uL Normal [id number] 4.2 - 5.4 [facility] MCH RBC QN AUTO 29pg Normal [id number] 25 - 33 [facility] MCHC RBC AUTO MCNC 32.3g/dL Normal [id number] 32 - 36 [facility] HGB BLD MCNC 12.3g/dL Below low normal [id number] 12.5 - 16 [facility] WBC NO. BLD AUTO 90.5K/uL Above high normal [id number] 4 - 10.5 [facility] MCV RBC AUTO 89.8fL Normal [id number] 78 - 100 [facility] PMV BLD AUTO 8.3fL Normal [id number] 7.4 - 11.4 [facility] RDW RBC AUTO RTO 15% Normal [id number] 12.1 - 16.2 [facility] HCT VFR BLD AUTO 38.1% Normal [id number] 37 - 47 [facility] FERRITIN SERPL MCNC 15ng/mL Normal [id number] 10 - 120 [facility] TIBC SERPL MCNC 445ug/dL Normal [id number] 250 - 450 [facility] UIBC SERPL MCNC 383ug/dL Above high normal [id number] 155 - 355 [facility] IRON SERPL MCNC 62mcg/dL Normal [id number] 37 - 170 [facility] IRON SATN MFR SERPL 14% Below low normal [id number] 20 - 45 [facility] LDH SERPL L TO P CCNC 231U/L Above high normal [id number] 125 - 220 [facility] VIT B12 SER MCNC 761pg/mL Normal [id number] 180 - 914 [facility] FERRITIN SERPL MCNC 13ng/mL Normal [id number] 10 - 120 [facility] CALCIUM SERPL MCNC 9.4mg/dL Normal [id number] 8.4 - 10.2 [facility] ANION GAP SERPL SCNC 7mmol/L Normal [id number] 5 - 14 [facility] Glomerular filtration rate/1.73 sq M. predicted 72 Normal [id number] 60 - [facility] HCO3 SER SCNC 31mmol/L Normal [id number] 24 - 32 [facility] AST SERPL CCNC 18U/L Normal [id number] 5 - 40 [facility] GLUCOSE SERPL MCNC 118mg/dL Normal [id number] 70 - 199 [facility] BUN SERPL MCNC 16mg/dL Normal [id number] 7 - 17 [facility] CHLORIDE SERPL SCNC 103mmol/L Normal [id number] 98 - 107 [facility] ALBUMIN SERPL BCG MCNC 4.2g/dL Normal [id number] 3.5 - 5 [facility] ALP SERPL-CCNC 97U/L Normal [id number] 34 - 104 [facility] ALT SERPL CCNC 16U/L Normal [id number] 7 - 52 [facility] CREAT SERPL MCNC 0.9mg/dL Normal [id number] 0.5 - 1 [facility] SODIUM SERPL SCNC 141mmol/L Normal [id number] 135 - 145 [facility] PROT SERPL MCNC 6.6g/dL Normal [id number] 6.4 - 8.5 [facility] BILIRUB SERPL MCNC 0.3mg/dL Normal [id number] 0.3 - 1 [facility] POTASSIUM SERPL SCNC 3.8mmol/L Normal [id number] 3.5 - 5.1 [facility] TIBC SERPL MCNC 460ug/dL Above high normal [id number] 250 - 450 [facility] UIBC SERPL MCNC 389ug/dL Above high normal [id number] 155 - 355 [facility] IRON SERPL MCNC 71mcg/dL Normal [id number] 37 - 170 [facility] IRON SATN MFR SERPL 15% Below low normal [id number] 20 - 45 [facility] LDH SERPL L TO P CCNC 223U/L Above high normal [id number] 125 - 220 [facility] LYMPHOCYTES NO. BLD AUTO 81.9K/uL Above high normal [id number] 1 - 3.2 [facility] EOSINOPHIL NO. BLD AUTO 0.3K/uL Normal [id number] 0 - 0.5 [facility] MONOCYTES NFR BLD AUTO 14.4% Above high normal [id number] 2 - 12 [facility] IMMATURE GRANULOCYTE, ABSOLUTE 0.11k/uL Above high normal [id number] - 0.1 [facility] LYMPHOCYTES NFR BLD AUTO 81.6% Above high normal [id number] 20 - 48 [facility] EOSINOPHIL NFR BLD AUTO 0.3% Normal [id number] 0 - 6 [facility] NEUTROPHILS NO. BLD AUTO 3.6K/uL Normal [id number] 1.8 - 7.8 [facility] BASOPHILS NFR BLD AUTO 0.1% Normal [id number] 0 - 2 [facility] MONOCYTES NO. BLD AUTO 14.4K/uL Above high normal [id number] 0 - 0.8 [facility] NEUTROPHILS NFR BLD AUTO 3.5% Below low normal [id number] 44 - 74 [facility] IMMATURE GRANULOCYTE, PERCENT 0.1% Normal [id number] 0 - 1 [facility] BASOPHILS IN BLOOD BY AUTOMATED COUNT 0.1K/uL Normal [id number] 0 - 0.2 [facility] PLATELET NO. BLD AUTO 173K/uL Normal [id number] 150 - 450 [facility] RBC NO. BLD AUTO 4.18M/uL Below low normal [id number] 4.2 - 5.4 [facility] MCH RBC QN AUTO 27.8pg Normal [id number] 25 - 33 [facility] MCHC RBC AUTO MCNC 32g/dL Normal [id number] 32 - 36 [facility] HGB BLD MCNC 11.6g/dL Below low normal [id number] 12.5 - 16 [facility] WBC NO. BLD AUTO 100.4K/uL Above high normal [id number] 4 - 10.5 [facility] MCV RBC AUTO 86.8fL Normal [id number] 78 - 100 [facility] PMV BLD AUTO 9.7fL Normal [id number] 7.4 - 11.4 [facility] RDW RBC AUTO RTO 14.5% Normal [id number] 12.1 - 16.2 [facility] HCT VFR BLD AUTO 36.3% Below low normal [id number] 37 - 47 [facility] URATE SERPL MCNC 4.4mg/dL Normal [id number] 2.5 - 7 [facility] CALCIUM SERPL MCNC 9.2mg/dL Normal [id number] 8.4 - 10.2 [facility] ANION GAP SERPL SCNC 7mmol/L Normal [id number] 5 - 14 [facility] Glomerular filtration rate/1.73 sq M. predicted 64 Normal [id number] 60 - [facility] HCO3 SER SCNC 30mmol/L Normal [id number] 24 - 32 [facility] AST SERPL CCNC 19U/L Normal [id number] 5 - 40 [facility] GLUCOSE SERPL MCNC 75mg/dL Normal [id number] 70 - 199 [facility] BUN SERPL MCNC 18mg/dL Above high normal [id number] 7 - 17 [facility] CHLORIDE SERPL SCNC 101mmol/L Normal [id number] 98 - 107 [facility] ALBUMIN SERPL BCG MCNC 4.4g/dL Normal [id number] 3.5 - 5 [facility] ALP SERPL-CCNC 103U/L Normal [id number] 34 - 104 [facility] ALT SERPL CCNC 16U/L Normal [id number] 7 - 52 [facility] CREAT SERPL MCNC 1mg/dL Normal [id number] 0.5 - 1 [facility] SODIUM SERPL SCNC 138mmol/L Normal [id number] 135 - 145 [facility] PROT SERPL MCNC 6.3g/dL Below low normal [id number] 6.4 - 8.5 [facility] BILIRUB SERPL MCNC 0.3mg/dL Normal [id number] 0.3 - 1 [facility] POTASSIUM SERPL SCNC 3.9mmol/L Normal [id number] 3.5 - 5.1 [facility] LDH SERPL L TO P CCNC 235U/L Above high normal [id number] 125 - 220 [facility] MONOCYTES NFR BLD MANUAL 3% Normal [id number] 2 - 12 [facility] POLYS NFR BLD MANUAL 2% Below low normal [id number] 44 - 74 [facility] LYMPHOCYTES NFR BLD MANUAL 93% Above high normal [id number] 20 - 48 [facility] EOSINOPHIL NFR BLD MANUAL 2% Normal [id number] 0 - 6 [facility] HGB BLD MCNC 11.3g/dL Below low normal [id number] 12.5 - 16 [facility] PLATELET NO. BLD AUTO 222K/uL Normal [id number] 150 - 450 [facility] WBC NO. BLD AUTO 90.4K/uL Above high normal [id number] 4 - 10.5 [facility] RBC NO. BLD AUTO 4.02M/uL Below low normal [id number] 4.2 - 5.4 [facility] MCH RBC QN AUTO 28.1pg Normal [id number] 25 - 33 C [facility] MCHC RBC AUTO MCNC 31.8g/dL Below low normal [id number] 3 2 - 36 [facility] MCV RBC AUTO 88.3fL Normal [id number] 78 - 100 [facility] PMV BLD AUTO 9.7fL Normal [id number] 7.4 - 11.4 [facility] RDW RBC AUTO RTO 14.4% Normal [id number] 12.1 - 16.2 [facility] HCT VFR BLD AUTO 35.5% Below low normal [id number] 37 - 47 [facility] LYMPHOCYTES NO. BLD AUTO 107.2K/uL Above high normal [id number] 1 - 3.2 [facility] EOSINOPHIL NO. BLD AUTO 0.3K/uL Normal [id number] 0 - 0.5 [facility] MONOCYTES NFR BLD AUTO 7.6% Normal [id number] 2 - 12 [facility] IMMATURE GRANULOCYTE, ABSOLUTE 0.21k/uL Above high normal [id number] - 0.1 [facility] LYMPHOCYTES NFR BLD AUTO 87.2% Above high normal [id number] 20 - 48 [facility] EOSINOPHIL NFR BLD AUTO 0.2% Normal [id number] 0 - 6 [facility] NEUTROPHILS NO. BLD AUTO 5.7K/uL Normal [id number] 1.8 - 7.8 [facility] BASOPHILS NFR BLD AUTO 0.1% Normal [id number] 0 - 2 [facility] MONOCYTES NO. BLD AUTO 9.4K/uL Above high normal [id number] 0 - 0.8 [facility] NEUTROPHILS NFR BLD AUTO 4.7% Below low normal [id number] 44 - 74 [facility] IMMATURE GRANULOCYTE, PERCENT 0.2% Normal [id number] 0 - 1 [facility] BASOPHILS IN BLOOD BY AUTOMATED COUNT 0.2K/uL Normal [id number] 0 - 0.2 [facility] PLATELET NO. BLD AUTO 221K/uL Normal [id number] 150 - 450 [facility] RBC NO. BLD AUTO 3.88M/uL Below low normal [id number] 4.2 - 5.4 [facility] MCH RBC QN AUTO 28.9pg Normal [id number] 25 - 33 [facility] MCHC RBC AUTO MCNC 32.2g/dL Normal [id number] 32 - 36 [facility] HGB BLD MCNC 11.2g/dL Below low normal [id number] 12.5 - 16 [facility] WBC NO. BLD AUTO 123K/uL Above high normal [id number] 4 - 10.5 [facility] MCV RBC AUTO 89.7fL Normal [id number] 78 - 100 [facility] PMV BLD AUTO 9.6fL Normal [id number] 7.4 - 11.4 [facility] RDW RBC AUTO RTO 14.3% Normal [id number] 12.1 - 16.2 [facility] HCT VFR BLD AUTO 34.8% Below low normal [id number] 37 - 47 [facility] DIFFERENTIAL TYPE AUTOMATED Normal [id number] [facility] LYMPHOCYTES NO. BLD AUTO 89.5K/uL Above high normal [id number] 1 - 3.2 [facility] EOSINOPHIL NO. BLD AUTO 0.2K/uL Normal [id number] 0 - 0.5 [facility] MONOCYTES NFR BLD AUTO 1.9% Below low normal [id number] 2 - 12 [facility] LYMPHOCYTES NFR BLD AUTO 92.3% Above high normal [id number] 20 - 48 [facility] EOSINOPHIL NFR BLD AUTO 0.2% Normal [id number] 0 - 6 [facility] NEUTROPHILS NO. BLD AUTO 5.1K/uL Normal [id number] 1.8 - 7.8 [facility] BASOPHILS NFR BLD AUTO 0.3% Normal [id number] 0 - 2 [facility] MONOCYTES NO. BLD AUTO 1.9K/uL Above high normal [id number] 0 - 0.8 [facility] NEUTROPHILS NFR BLD AUTO 5.3% Below low normal [id number] 44 - 74 [facility] BASOPHILS IN BLOOD BY AUTOMATED COUNT 0.3K/uL Above high normal [id number] 0 - 0.2 [facility] PL[facility] NO. BLD AUTO 216K/uL Normal [id number] 150 - 450 [facility] RBC NO. BLD AUTO 4.22M/uL Normal [id number] 4.2 - 5.4 [facility] MCH RBC QN AUTO 29.1pg Normal 25 - 33 C [facility] MCHC RBC AUTO MCNC 32.1g/dL Normal 32 - 36 [facility] HGB BLD MCNC 12.3g/dL Below low normal 12.5 - 16 [facility] WBC NO. BLD AUTO 97K/uL Above high normal [id number] 4 - 10.5 [facility] MCV RBC AUTO 90.6fL Normal 78 - 100 [facility] PMV BLD AUTO 8.2fL Normal 7.4 - 11.4 [facility] RDW RBC AUTO RTO 14.4% Normal 12.1 - 16.2 [facility] HCT VFR BLD AUTO 38.3% Normal 37 - 47 [facility] SPECIMEN SENT TO [employer] ON 06.18.23 Normal [id number] [facility] DIFFERENTIAL TYPE MANUAL Normal [facility] [place] PRESENT Normal [facility] POLYCHROMASIA OCCASIONAL Normal [facility] MONOCYTES NFR BLD MANUAL 1% Below low normal 2 - 12 [facility] POLYS NFR BLD MANUAL 7% Below low normal 44 - 74 [facility] LYMPHOCYTES NFR BLD MANUAL 92% Above high normal 20 - 48 [facility] LDH SERPL L TO P CCNC 206U/L Normal 125 - 220 [facility] CALCIUM SERPL MCNC 9.1mg/dL Normal 8.4 - 10.2 [facility] ANION GAP SERPL SCNC 9mmol/L Normal 5 - 14 [facility] Glomerular filtration rate/1.73 sq M. predicted 84 Normal 60 - [facility] HCO3 SER SCNC 26mmol/L Normal 24 - 32 [facility] AST SERPL CCNC 16U/L Normal 5 - 40 [facility] GLUCOSE SERPL MCNC 78mg/dL Normal 70 - 199 [facility] BUN SERPL MCNC 17mg/dL Normal 7 - 17 [facility] CHLORIDE SERPL SCNC 106mmol/L Normal 98 - 107 [facility] ALBUMIN SERPL BCG MCNC 4.4g/dL Normal 3.5 - 5 [facility] ALP SERPL-CCNC 95U/L Normal 34 - 104 [facility] ALT SERPL CCNC 16U/L Normal 7 - 52 [facility] CREAT SERPL MCNC 0.8mg/dL Normal 0.5 - 1 [facility] SODIUM SERPL SCNC 141mmol/L Normal 135 - 145 [facility] PROT SERPL MCNC 6.6g/dL Normal 6.4 - 8.5 [facility] BILIRUB SERPL MCNC 0.3mg/dL Normal 0.3 - 1 [facility] POTASSIUM SERPL SCNC 4.3mmol/L Normal 3.5 - 5.1 [facility] PLATELET NO. BLD AUTO 188K/uL Normal [id number] 150 - 450 [facility] RBC NO. BLD AUTO 4.31M/uL Normal 4.2 - 5.4 [facility] MCH RBC QN AUTO 28.8pg Normal [id number] 25 - 33 [facility] MCHC RBC AUTO MCNC 32.2g/dL Normal 32 - 36 [facility] HGB BLD MCNC 12.4g/dL Below low normal [id number] 12.5 - 16 [facility] WBC NO. BLD AUTO 99.7K/uL Above high normal [id number] 4 - 10.5 [facility] MCV RBC AUTO 89.4fL Normal [id number] 78 - 100 [facility] PMV BLD AUTO 8.3fL Normal [id number] 7.4 - 11.4 [facility] RDW RBC AUTO RTO 14.6% Normal [id number] 12.1 - 16.2 [facility] HCT VFR BLD AUTO 38.6% Normal 37 - 47 [facility] DIFFERENTIAL TYPE MANUAL Normal [facility] OVALOCYTES OCCASIONAL Normal [facility] MACROC[facility] PRESENT Normal [facility] POLYS NFR BLD MANUAL 4% Below low normal 44 - 74 [facility] LYMPHOCYTES NFR BLD MANUAL 94% Above high normal 20 - 48 [facility] EOSINOPHIL NFR BLD MANUAL 2% Normal 0 - 6 [facility] PLATELET NO. BLD AUTO 220K/uL Normal 150 - 450 [facility] RBC NO. BLD AUTO 4.37M/uL Normal 4.2 - 5.4 [facility] MCH RBC QN AUTO 28.4pg Normal 25 - 33 [facility] MCHC RBC AUTO MCNC 31.6g/dL Below low normal 3 2 - 36 [facility] HGB BLD MCNC 12.4g/dL Below low normal 12.5 - 16 [facility] WBC NO. BLD AUTO 93.6K/uL Above high normal 4 - 10.5 [facility] MCV RBC AUTO 89.7fL Normal 78 - 100 [facility] PMV BLD AUTO 8fL Normal 7.4 - 11.4 [facility] RDW RBC AUTO RTO 15.2% Normal 12.1 - 16.2 [facility] HCT VFR BLD AUTO 39.2% Normal 37 - 47 [facility] CALCIUM SERPL MCNC 9.3mg/dL Normal 8.4 - 10.2 [facility] ANION GAP SERPL SCNC 7mmol/L Normal 5 - 14 [facility] Glomerular filtration rate/1.73 sq M. predicted 73 Normal 60 - [facility] HCO3 SER SCNC 28mmol/L Normal 24 - 32 CTT HS AST SERPL CCNC 18U/L Normal 5 - 40 [facility] GLUCOSE SERPL MCNC 77mg/dL Normal 70 - 199 [facility] BUN SERPL MCNC 18mg/dL Above high normal 7 - 17 [facility] CHLORIDE SERPL SCNC 102mmol/L Normal 98 - 107 [facility] ALBUMIN SERPL BCG MCNC 4.3g/dL Normal 3.5 - 5 [facility] ALP SERPL-CCNC 94U/L Normal 34 - 104 [facility] ALT SERPL CCNC 18U/L Normal 7 - 52 [facility] CREAT SERPL MCNC 0.9mg/dL Normal 0.5 - 1 [facility] SODIUM SERPL SCNC 137mmol/L Normal 135 - 145 [facility] PROT SERPL MCNC 6.8g/dL Normal 6.4 - 8.5 [facility] BILIRUB SERPL MCNC 0.3mg/dL Normal 0.3 - 1 [facility] POTASSIUM SERPL SCNC 4.1mmol/L Normal 3.5 - 5.1 [facility] LDH SERPL L TO P CCNC 197U/L Normal 125 - 220 [facility] URATE SERPL MCNC 4.4mg/dL Normal 2.5 - 7 [facility] History of Medication Use Medication Directions Dispensed Refills Start Date End Date [facility] traMADoL (ULTRAM) 50 mg tablet Take 1 tablet (50 mg total) by mouth every 6 hours as needed. Max Daily Amount: 200 mg active atorvastatin (LIPITOR) 20 mg tablet Take 1 tablet (20 mg total) by mouth 1 (one) time each day. 04/13/2023 active multivitamin (MULTIPLE VITAMINS ORAL) Take by mouth 1 (one) time each day. active cetirizine (ZyrTEC) 10 mg tablet Take 1 tablet (10 mg total) by mouth 1 (one) time each day. active amitriptyline (ELAVIL) 25 mg tablet Take 2 tablets (50 mg total) by mouth at bedtime. 06/26/2017 active cetirizine (ZyrTEC) 10 mg tablet Take 1 tablet (10 mg total) by mouth 1 (one) time each day. active cetirizine (ZyrTEC) 10 MG tablet Take 1 tablet (10 mg total) by mouth daily. active amitriptyline (ELAVIL) tablet 25 mg TAKE 2 TABLETS BY MOUTH ONCE A DAY AT BEDTIME 06/26/2017 active atorvastatin (LIPITOR) 20 mg tablet Take 1 tablet (20 mg total) by mouth 1 (one) time each day. 04/13/2023 active iopamidol (ISOVUE-370) 76 % injection 100 mL 100 mL, Intravenous, IMG once as needed, contrast, Starting on Thu01/12/24 at 0843, For 1 dose, Radiology Contrast 01/12/2024 01/12/2024 completed amitriptyline (ELAVIL) 25 mg tablet Take 2 tablets (50 mg total) by mouth at bedtime. 06/26/2017 active atorvastatin (LIPITOR) tablet 20 mg TAKE 1 TABLET BY MOUTH EVERY DAY 07/26/2023 active Problems Problem Status Onset Date Problem Type Date of Resolution Source Prediabetes active 2023-03-23 ProblemAct [facility] MARIA FERNANDA Fibromyalgia active 2018-07-21 ProblemAct [facility] SFRAN Iron deficiency anemia, unspecified iron deficiency anemia type active EncounterDiagnosisAct [facility] H Cigarette smoker active 2020-09-12 ProblemAct C T_[facility]AN CLL (chronic lymphocytic leukemia) active 2018-12-02 ProblemAct [facility] Mixed hyperlipidemia active 2017-05-26 ProblemAct [facility] Iron deficiency anemia due to chronic blood loss active EncounterDiagnosisAct [facility]NEMG
--- OUTSIDE RECORDS SUMMARY | 2024-06-15 08:03 | XMS_ITS | Encounter Summary ---
Author Organization [facility] Address [address] [place] [address] Care Team Providers Care Body Design Checker Name Role Phone Jus Reed MD Primary Care Provider [phone] Encounter Details Date Type Department Care Team (Late st Contact Info) Description 05/20/2024 Telephone Hematology and Oncology - [address] [phone] Razia Everett MD [address] [place] [id number] Social History Tobacco Use Types Packs/Day Years [...] as of this encounter Progress Notes * Razia Everett MD - 05/20/2024 9:24 AM EST Called patient as she was unable to connect to video call for our telehealth visit. She is aware weare unable to do audio visits. Reviewed her CBC, sWBC is elevated to 115 c/w with her diagnosis of CLL. Plt count normal, H/H mildly decreased however stable. She has stable intermittent fatigue, no new symptoms. We will plan for inperson follow up in 2 months with repeat labs. documented in this encounter Plan of Treatment Upcoming Encounters Date Type Department Care Team (Late st Contact Info) Description 07/14/2024 4:00 PM EDT Clinic Lab Collection [facility] [address] [place] [phone] 07/14/2024 4:20 PM EDT Office Visit [facility] [place] [address] [place] [phone] Razia Everett MD [address] [place] [address] Scheduled Orders Name Type Priority Associated Diagnoses Orde r Schedule CBC and differential Lab Routine CLL (chronic lymphocytic leukemia) ([facility]/HCC) 1 Occurrences starting 05/20/2024 until 05/20/2025 Comprehensive metabolic panel Lab Routine CLL (chronic lymphocytic leukemia) ([facility]) 1 Occurrences starting 05/20/2024 until 05/20/2025 Lactate dehydrogenase Lab Routine CLL (chronic lymphocytic leukemia) ([facility]/HCC) 1 Occurrences starting 05/20/2024 until 05/20/2025 Uric acid Lab Routine CLL (chronic lymphocytic leukemia) ([facility]) 1 Occurrences starting 05/20/2024 until 05/20/2025 documented as of this encounter Visit Diagnoses Diagnosis CLL (chronic lymphocytic leukemia) (CMS/HCC)- Primary Chronic lymphoid leukemia, without mention of having achieved remission documented in this encounter Orders Appointment Requests Count Last Ordered Date Fi rst Ordered Date ONCBCN CLINIC APPOINTMENT REQUEST 1 025 documented in this encounter Care Teams Body Design Checker Relationship Specialty Start Date End Date Jus Reed MD PCP - General Internal Medicine 06/27/16 documented as of this encounter
[2024-06-15 08:10] VITALS: BP 115/62; PULSE 80; O2SAT 98; BMI 22.3
--- NOTE | 2024-06-15 08:10 | A.OFFVIS_ITS ---
Vital Signs 06/15/24 08:10 Height 5 ft 2.5 in Weight 123 lb 10.869 oz BMI 22.3 BP 115/62 Blood Pressure Location Lt brachial Position Sitting Pulse 80 Pulse Source Pulse Oximeter Pulse Oximetry (%) 98 Oxygen Delivery Method Room Air Intake Visit Reasons: FMS Allergies prochlorperazine [From Compazine] Allergy (Verified 06/15/24 08:10) Nausea Medication List - Last Reconciled 06/15/24 by Shelby Kelley MD atorvastatin 20 mg PO DAILY tramadol 50 mg PO Q6H HPI Comments Details: Patient is a 63-year-old female with hyperlipidemia, polyarticular osteoarthritis, CLL and fibromyalgia who is here today for follow up Interval History: Patient last seen 12/14/[address] Brink. At that time she remained on tramadol 50 mg 4 times a day and reported that her pain continues to fluctuate but overall remained stable. She is being followed by her director medical affairs for CLL Today, She has not started treatment for CLL however her neutrophils have been decreasing and it is likely that she will start treatment soon. With respect to her fibromyalgia she continues to have widespread pain. No prolonged morning stiffness or swelling reported. Rheumatologic History: polyarticular osteoarthritis and fibromyalgia Current Rheumatology Medication(s): Amitriptyline 50 mg at bedtime (no longer taking) Tramadol 50 mg q.6 hours PFSH Medical History Chronic lymphocytic leukemia Fibromyalgia Surgical History S/P removal of left ovary Hx of tubal ligation Social History Alcohol intake: never Patient Tobacco Use Status: Current everyday Tobacco user Cigarettes Per Day: 10 Years Smoked: 20 Review of Systems Const Details: Review of Systems Constitutional: Denies fever, chills, weight loss ENT: Denies vision changes, eye pain or eye redness, dental caries, dry mouth GI: Denies nausea, vomiting, diarrhea, abdominal pain, change in BM Pulm: Denies SOB, VERGARA, hemoptysis, wheezing Cards: Denies chest pain, palpitations Skin: Denies Raynaud's, rash, nail changes, photosensitivity, COLLECTION COORDINATOR: Denies headaches, weakness, paresthesias, recurrent falls MSK: as per HPI All other systems reviewed and are unremarkable except noted above Physical Exam Vital Signs: Last Vital Signs Pulse 80 06/15/24 08:10 BP 115/62 06/15/24 08:10 Pulse Ox 98 06/15/24 08:10 Oxygen Delivery Method Room Air 06/15/24 08:10 BMI result Body Mass Index 22.3 Vital signs reviewed Physical Examination CONSTITUITIONAL Patient alert and cooperative. Well appearing and in no apparent painful distress HEENT Conjunctiva and sclera clear. Pupils equal round and reactive to light. No lymphadenopathy. CHEST/RESPIRATORY SYSTEM Normal respiratory effort and able to speak in complete sentences. Clear to auscultation bilaterally. No crackles, rales, rhonchi, wheezes heard. CARDIAC SYSTEM Regular rate and rhythm. S1 and S2 heard no murmurs. Radial pulses intact bilaterally MSK Hands: Good signals intelligence analysis manager strength bilaterally. No deformities noted. No synovitis noted to the MCPs, PIPs or DIPs. No tenderness to palpation of these joints. Heberden's and Casandra's nodes noted throughout hands bilaterally. Wrists: Full range of motion at the wrists without pain. No tenderness to palpation or synovitis noted to the wrists. Elbows: Full range of motion without pain. Tenderness to palpation of the right lateral epicondyle with pain exacerbated by resisted wrist flexion. Shoulders: Full range of motion without pain. No tenderness, weakness, swelling, increased warmth or erythema. Hips: Full range of motion without pain. Hip bursa: tenderness to palpation Knees: Full range of motion. No tenderness, swelling, increased warmth or erythema.?No effusion or crepitations Ankles: Full range of motion. No tenderness, swelling, increased warmth or erythema.? Feet: Negative squeeze test. No tenderness to palpation or swelling of the MTPs. Tender points:?tenderness to palpation of the bilateral trapezius, supraspinatus, greater trochanters, anterior costochondral junctions, bilateral gluteal areas, bilateral suboccipital muscle insertions SKIN Skin intact without rashes. Results Reviewed Results Reviewed: No recent labs to review Assessment & Plan Assessment & Plan (1) Fibromyalgia: Code(s): M79.7 - Fibromyalgia Category: Medical Plan: #Fibromyalgia patient is a 61-year-old female with CLL, polyarticular osteoarthritis and fibromyalgia here today for follow up. 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 Recommended topical diclofenac 4 times a day and using copper gloves Plan - Topical diclofenac 1% qid - Copper gloves Plan I spent 20 minutes reviewing the record and labs, taking a history, examining the patient, discussing the treatment plan and documenting in the medical record Medications: Changed From tramadol 50 mg PO Q6H 120 tabs 5RF M79.7 - Fibromyalgia To tramadol 50 mg PO Q6H 30 days 120 tabs 5RF M79.7 - Fibromyalgia Discontinued amitriptyline Discontinued Reason: Doctor's Order 50 mg (2 x 25 mg) PO BEDTIME 60 tabs 3RF Coding Level of Care Code Est Pt Level 3 (47423) Diagnoses Fibromyalgia M79.7 Primary osteoarthritis of both hands M19.041; M19.042 Osteoarthritis type: primary
== END 2024-06-15 08:58 | disposition home or self-care (01) ==
PROVIDERS: PCP Specialist; Visit Provider Student in an Organized Health Care Education/Training Program
DX: M79.7 Fibromyalgia (principal); M19.041 Primary osteoarthritis, right hand; M19.042 Primary osteoarthritis, left hand
CPT/HCPCS: 99213

== ENCOUNTER 2024-12-14 07:50 | Outpatient (AMB) | payer OTHER, SELFPAY ==
--- OUTSIDE RECORDS SUMMARY | 2024-12-14 07:53 | XMS_ITS ---
Author Name [facility] Organization Unknown Results Test Name/Text Value Interpretation Date Range Source Calcium SerPl-mCnc 9.1 mg/dL 11/15/2024 8.4 - 10.2 [facility] ALT SerPl-cCnc 15.0 unit/L 11/15/2024 7 - 52 [facility] CO2 SerPl-sCnc 27.0 mmol/L 11/15/2024 24 - 32 [facility] Chloride SerPl-sCnc 103.0 mmol/L 11/15/2024 98 - 1 07 [facility] Prot SerPl-mCnc 6.5 g/dL 11/15/2024 6.4 - 8.5 [facility] AST SerPl-cCnc 19.0 unit/L 11/15/2024 5 - 40 [facility] Creat SerPl-mCnc 0.9 mg/dL 11/15/2024 0.5 - 1 [facility] Albumin SerPl-mCnc 4.5 g/dL 11/15/2024 3.5 - 5 [facility] Glucose SerPl-mCnc 113.0 mg/dL 11/15/2024 70 - 199 [facility] eGFRcr SerPlBld CKD-EPI 2020 72.0 mL/min/1.73m2 11/15/2024 - [facility] BUN/Creat SerPl 17.8 11/15/2024 12 - 20 [facility] BUN SerPl-mCnc 16.0 mg/dL 11/15/2024 7 - 17 [facility] Sodium SerPl-sCnc 139.0 mmol/L 11/15/2024 135 - 14 5 [facility] Potassium SerPl-sCnc 4.0 mmol/L 11/15/2024 3.5 - 5.1 [facility] ALP SerPl-cCnc 110.0 unit/L Above high normal 11/15/2024 34 - 104 [facility] Bilirub SerPl-mCnc 0.3 mg/dL 11/15/2024 0.3 - 1 [facility] Anion Gap SerPl Calc-sCnc 9.0 11/15/2024 5 - 14 [facility] LDH SerPl L to P-cCnc 242.0 unit/L Above high normal 11/15/2024 125 - 220 [facility] RDW RBC Auto 13.8 % 11/15/2024 12.1 - 16.2 [facility] Hct VFr Bld Auto 36.3 % Below low normal 11/15/2024 37 - 47 [facility] MCHC RBC Auto-EntMCnc 32.8 g/dL 11/15/2024 32 - 36 [facility] RBC # Bld Auto 4.06 M/mcL Below low normal 11/15/2024 4.2 - 5.4 [facility] Platelet # Bld Auto 222.0 K/mcL 11/15/2024 150 - 4 50 [facility] Hgb Bld-mCnc 11.9 g/dL Below low normal 11/15/2024 12.5 - 16 [facility] MCH RBC Qn Auto 29.3 pcg 11/15/2024 25 - 33 [facility] RBC Auto 89.4 FL 11/15/2024 78 - 100 [facility] WBC # Bld Auto 156.7 K/mcL Critically high 11/15/2024 4 - 10 .5 [facility] PMV Bld Auto 10.1 FL 11/15/2024 7.4 - 11.4 [facility] Lymphocytes # Bld Manual 150.43 K/mcL Above high normal 11/15/2024 1 - 3.2 [facility] RBC morph Bld RBC Morphology appears normal 11/15/2024 [facility] Neuts Seg # Bld Manual 6.27 K/mcL 11/15/2024 1.8 - 7.8 [facility] Lymphocytes NFr Bld Manual 96.0 % Above high normal 11/15/2024 20 - 48 [facility] Neuts Seg NFr Bld Manual 4.0 % Below low normal 11/15/2024 44 - 74 [facility] Platelet Bld Ql Smear Platelets Appear Normal 11/15/2024 - [facility] ALT SerPl-cCnc 18.0 unit/L 08/30/2024 7 - 52 [facility] BUN SerPl-mCnc 17.0 mg/dL 08/30/2024 7 - 17 [facility] eGFRcr SerPlBld CKD-EPI 2020 72.0 mL/min/1.73m2 08/30/2024 - [facility] BUN/Creat SerPl 18.9 08/30/2024 12 - 20 [facility] Sodium SerPl-sCnc 141.0 mmol/L 08/30/2024 135 - 14 5 [facility] Bilirub SerPl-mCnc 0.3 mg/dL 08/30/2024 0.3 - 1 [facility] Calcium SerPl-mCnc 9.1 mg/dL 08/30/2024 8.4 - 10.2 [facility] AST SerPl-cCnc 19.0 unit/L 08/30/2024 5 - 40 [facility] Creat SerPl-mCnc 0.9 mg/dL 08/30/2024 0.5 - 1 [facility] Albumin SerPl-mCnc 4.5 g/dL 08/30/2024 3.5 - 5 [facility] Prot SerPl-mCnc 6.4 g/dL 08/30/2024 6.4 - 8.5 [facility] Potassium SerPl-sCnc 4.2 mmol/L 08/30/2024 3.5 - 5.1 [facility] Glucose SerPl-mCnc 104.0 mg/dL 08/30/2024 70 - 199 [facility] Anion Gap SerPl Calc-sCnc 9.0 08/30/2024 5 - 14 [facility] CO2 SerPl-sCnc 30.0 mmol/L 08/30/2024 24 - 32 [facility] Chloride SerPl-sCnc 102.0 mmol/L 08/30/2024 98 - 1 07 [facility] ALP SerPl-cCnc 109.0 unit/L Above high normal 08/30/2024 34 - 104 [facility] LDH SerPl L to P-cCnc 246.0 unit/L Above high normal 08/30/2024 125 - 220 [facility] Urate SerPl-mCnc 4.4 mg/dL 08/30/2024 2.5 - 7 [facility] Basophils NFr Bld Auto 0.1 % 08/30/2024 0 - 2 [facility] Neutrophils NFr Bld Auto 2.1 % Below low normal 08/30/2024 44 - 74 [facility] RBC Auto 90.4 FL 08/30/2024 78 - 100 [facility] Basophils # Bld Auto 0.09 K/mcL 08/30/2024 0 - 0.2 [facility] MCH RBC Qn Auto 29.9 pcg 08/30/2024 25 - 33 [facility] Eosinophil NFr Bld Auto 0.2 % 08/30/2024 0 - 6 [facility] WBC # Bld Auto 149.7 K/mcL Critically high 08/30/2024 4 - 10 .5 [facility] Eosinophil # Bld Auto 0.27 K/mcL 08/30/2024 0 - 0.5 [facility] Platelet # Bld Auto 206.0 K/mcL 08/30/2024 150 - 4 50 [facility] Lymphocytes # Bld Auto 108.48 K/mcL Above high normal 08/30/2024 1 - 3.2 [facility] Hgb Bld-mCnc 11.2 g/dL Below low normal 08/30/2024 12.5 - 16 [facility] PMV Bld Auto 9.4 FL 08/30/2024 7.4 - 11.4 [facility] Neutrophils # Bld Auto 3.41 K/mcL 08/30/2024 1.8 - 7.8 [facility] MCHC RBC Auto-EntMCnc 33.1 g/dL 08/30/2024 32 - 36 [facility] Hct VFr Bld Auto 33.8 % Below low normal 08/30/2024 37 - 47 [facility] Lymphocytes NFr Bld Auto 72.5 % Above high normal 08/30/2024 20 - 48 [facility] RDW RBC Auto 14.1 % 08/30/2024 12.1 - 16.2 [facility] Monocytes # Bld Auto 37.36 K/mcL Above high normal 08/30/2024 0 - 0.8 [facility] Monocytes NFr Bld Auto 25.0 % Above high normal 08/30/2024 2 - 12 [facility] RBC # Bld Auto 3.74 M/mcL Below low normal 08/30/2024 4.2 - 5.4 [facility] MCH RBC Qn Auto 28.8 pcg Normal 07/22/2024 25 - 33 [facility] RDW RBC Auto-Rto 14.5 % Normal 07/22/2024 12.1 - 16.2 [facility] MCV RBC Auto 92.5 FL Normal 07/22/2024 78 - 100 [facility] FERNANDA WBC # Bld Auto 120.6 K/mcL Critically high 07/22/2024 4 - 10 .5 [facility] Hgb Bld-mCnc 11.5 g/dL Below low normal 07/22/2024 12.5 - 16 [facility] PMV Bld Auto 8.2 FL Normal 07/22/2024 7.4 - 11.4 [facility] MCHC RBC Auto-mCnc 31.1 g/dL Below low normal 07/22/2024 32 - 36 [facility] RBC # Bld Auto 3.98 M/mcL Below low normal 07/22/2024 4.2 - 5.4 [facility] Platelet # Bld Auto 173.0 K/mcL Normal 07/22/2024 150 - 4 50 [facility] Hct VFr Bld Auto 36.8 % Below low normal 07/22/2024 37 - 47 [facility] Ovalocytes Bld Ql Smear Occasional Normal 07/22/2024 [facility] Neuts Seg/leuk NFr Bld Manual 2.0 % Below low normal 07/22/2024 44 - 74 [facility] Monocytes # Bld Manual 4.82 K/mcL Above high normal 07/22/2024 0 - 0.8 [facility] Plasma Cells # Bld 2.41 K/mcL Normal 07/22/2024 [facility] Monocytes/leuk NFr Bld Manual 4.0 % Normal 07/22/2024 2 - 12 [facility] Lymphocytes # Bld Manual 110.95 K/mcL Above high normal 07/22/2024 1 - 3.2 [facility] Lymphocytes/leuk NFr Bld Manual 92.0 % Above high normal 07/22/2024 20 - 48 [facility] Neuts Seg # Bld Manual 2.41 K/mcL Normal 07/22/2024 1.8 - 7.8 [facility] Other cells/leuk NFr Bld Auto 2.0 % Normal 07/22/2024 [facility] Basophils/leuk NFr Bld Manual 1.0 % Normal 05/19/2024 0 - 2 [facility] Basophils # Bld Manual 1.16 K/mcL Above high normal 05/19/2024 0 - 0.2 [facility] Monocytes # Bld Manual 1.16 K/mcL Above high normal 05/19/2024 0 - 0.8 [facility] Neuts Seg # Bld Manual 1.16 K/mcL Below low normal 05/19/2024 1.8 - 7.8 [facility] Lymphocytes # Bld Manual 110.01 K/mcL Above high normal 05/19/2024 1 - 3.2 [facility] Eosinophil # Bld Manual 2.32 K/mcL Above high normal 05/19/2024 0 - 0.5 [facility] Polychromasia Present Occasional Normal 05/19/2024 [facility] Neuts Seg/leuk NFr Bld Manual 1.0 % Below low normal 05/19/2024 44 - 74 [facility] Smudge Cells/leuk NFr Bld Manual Present Normal 05/19/2024 [facility] RBC Ur Ql Auto Occasional Normal 05/19/2024 [facility] Lg Platelets Bld Ql Auto Normal Normal 05/19/2024 [facility] Lymphocytes/leuk NFr Bld Manual 95.0 % Above high normal 05/19/2024 20 - 48 [facility] Monocytes/leuk NFr Bld Manual 1.0 % Below low normal 05/19/2024 2 - 12 [facility] Eosinophil/leuk NFr Bld Manual 2.0 % Normal 05/19/2024 0 - 6 [facility] WBC # Bld Auto 115.8 K/mcL Critically high 05/19/2024 4 - 10 .5 [facility] RBC # Bld Auto 4.13 M/mcL Below low normal 05/19/2024 4.2 - 5.4 [facility] Hgb Bld-mCnc 11.9 g/dL Below low normal 05/19/2024 12.5 - 16 [facility] Platelet # Bld Auto 207.0 K/mcL Normal 05/19/2024 150 - 4 50 [facility] MCV RBC Auto 92.8 FL Normal 05/19/2024 78 - 100 [facility] MCHC RBC Auto-mCnc 31.1 g/dL Below low normal 05/19/2024 32 - 36 [facility] PMV Bld Auto 8.1 FL Normal 05/19/2024 7.4 - 11.4 [facility] Hct VFr Bld Auto 38.3 % Normal 05/19/2024 37 - 47 [facility] RDW RBC Auto-Rto 14.7 % Normal 05/19/2024 12.1 - 16.2 [facility] MCH RBC Qn Auto 28.9 pcg Normal 05/19/2024 25 - 33 [facility] Ferritin SerPl-mCnc 15.0 ng/mL Normal 05/18/2024 10 - 120 [facility] Iron SerPl-mCnc 58.0 mcg/dL Normal 05/18/2024 37 - 170 [facility] TIBC SerPl-mCnc 457.0 mcg/dL Above high normal 05/18/2024 25 0 - 450 [facility] UIBC SerPl-mCnc 399.0 mcg/dL Above high normal 05/18/2024 15 5 - 355 [facility] Iron Satn MFr SerPl 13.0 % Below low normal 05/18/2024 20 - 45 [facility] TIBC SERPL MCNC 445.0 ug/dL Normal 02/19/2024 250 - 450 C [facility] IRON SATN MFR SERPL 14.0 % Below low normal 02/19/2024 20 - 45 [facility] UIBC SERPL MCNC 383.0 ug/dL Above high normal 02/19/2024 155 - 355 [facility] IRON SERPL MCNC 62.0 mcg/dL Normal 02/19/2024 37 - 170 [facility] MANUAL Normal 02/19/2024 C [facility] MICROCYTES PRESENT Normal 02/19/2024 [facility] MONOCY[facility] NFR BLD MANUAL 2.0 % Normal 02/19/2024 2 - 12 [facility] OVALOCYTES OCCASIONAL Normal 02/19/2024 [facility] NEUTS BAND NFR BLD MANUAL 1.0 % Normal 02/19/2024 0 - 15 [facility] LYMPHOCYTES NFR BLD MANUAL 94.0 % Above high normal 02/19/2024 20 - 48 [facility] POLYS NFR BLD MANUAL 3.0 % Below low normal 02/19/2024 44 - 74 [facility] HGB BLD MCNC 12.3 g/dL Below low normal 02/19/2024 12.5 - 16 [facility] RDW RBC AUTO RTO 15.0 % Normal 02/19/2024 12.1 - 16.2 [facility] RBC NO. BLD AUTO 4.24 M/uL Normal 02/19/2024 4.2 - 5.4 CT [facility] WBC NO. BLD AUTO 90.5 K/uL Above high normal 02/19/2024 4 - 10.5 [facility] MCV RBC AUTO 89.8 fL Normal 02/19/2024 78 - 100 [facility] PLATELET NO. BLD AUTO 203.0 K/uL Normal 02/19/2024 150 - 450 [facility] MCHC RBC AUTO MCNC 32.3 g/dL Normal 02/19/2024 32 - 36 [facility] MCH RBC QN AUTO 29.0 pg Normal 02/19/2024 25 - 33 [facility] HCT VFR BLD AUTO 38.1 % Normal 02/19/2024 37 - 47 [facility] PMV BLD AUTO 8.3 fL Normal 02/19/2024 7.4 - 11.4 [facility] MH LDH SERPL L TO P CCNC 231.0 U/L Above high normal 02/19/2024 125 - 220 [facility] FERRITIN SERPL MCNC 15.0 ng/mL Normal 02/19/2024 10 - 120 [facility] LDH SERPL L TO P CCNC 223.0 U/L Above high normal 01/05/2024 125 - 220 [facility] FERRITIN SERPL MCNC 13.0 ng/mL Normal 01/05/2024 10 - 120 [facility] IRON SATN MFR SERPL 15.0 % Below low normal 01/05/2024 20 - 45 [facility] IRON SERPL MCNC 71.0 mcg/dL Normal 01/05/2024 37 - 170 [facility] TIBC SERPL MCNC 460.0 ug/dL Above high normal 01/05/2024 250 - 450 [facility] UIBC SERPL MCNC 389.0 ug/dL Above high normal 01/05/2024 155 - 355 [facility] HCO3 SER SCNC 31.0 mmol/L Normal 01/05/2024 24 - 32 [facility] POTASSIUM SERPL SCNC 3.8 mmol/L Normal 01/05/2024 3.5 - 5.1 [facility] BUN SERPL MCNC 16.0 mg/dL Normal 01/05/2024 7 - 17 [facility] CALCIUM SERPL MCNC 9.4 mg/dL Normal 01/05/2024 8.4 - 10.2 [facility] CREAT SERPL MCNC 0.9 mg/dL Normal 01/05/2024 0.5 - 1 [facility] ANION GAP SERPL SCNC 7.0 mmol/L Normal 01/05/2024 5 - 14 [facility] ALP SERPL-CCNC 97.0 U/L Normal 01/05/2024 34 - 104 [facility] ALBUMIN SERPL BCG MCNC 4.2 g/dL Normal 01/05/2024 3.5 - 5 [facility] BILIRUB SERPL MCNC 0.3 mg/dL Normal 01/05/2024 0.3 - 1 [facility] Glomerular filtration rate/1.73 sq M. predicted 72.0 Normal 01/05/2024 60 - [facility] ALT SERPL CCNC 16.0 U/L Normal 01/05/2024 7 - 52 [facility] PROT SERPL MCNC 6.6 g/dL Normal 01/05/2024 6.4 - 8.5 [facility] GLUCOSE SERPL MCNC 118.0 mg/dL Normal 01/05/2024 70 - 199 [facility] AST SERPL CCNC 18.0 U/L Normal 01/05/2024 5 - 40 [facility] SODIUM SERPL SCNC 141.0 mmol/L Normal 01/05/2024 135 - 14 5 [facility] CHLORIDE SERPL SCNC 103.0 mmol/L Normal 01/05/2024 98 - 1 07 [facility] BASOPHILS IN BLOOD BY AUTOMATED COUNT 0.1 K/uL Normal 01/05/2024 0 - 0.2 [facility] IMMATURE GRANULOCYTE, PERCENT 0.1 % Normal 01/05/2024 0 - 1 [facility] EOSINOPHIL NO. BLD AUTO 0.3 K/uL Normal 01/05/2024 0 - 0.5 [facility] EOSINOPHIL NFR BLD AUTO 0.3 % Normal 01/05/2024 0 - 6 [facility] MONOCYTES NFR BLD AUTO 14.4 % Above high normal 01/05/2024 2 - 12 [facility] LYMPHOCYTES NO. BLD AUTO 81.9 K/uL Above high normal 01/05/2024 1 - 3.2 [facility] NEUTROPHILS NFR BLD AUTO 3.5 % Below low normal 01/05/2024 44 - 74 [facility] MONOCYTES NO. BLD AUTO 14.4 K/uL Above high normal 01/05/2024 0 - 0.8 [facility] NEUTROPHILS NO. BLD AUTO 3.6 K/uL Normal 01/05/2024 1.8 - 7.8 [facility] IMMATURE GRANULOCYTE, ABSOLUTE 0.11 k/uL Above high normal 01/05/2024 - 0.1 [facility] BASOPHILS NFR BLD AUTO 0.1 % Normal 01/05/2024 0 - 2 [facility] LYMPHOCYTES NFR BLD AUTO 81.6 % Above high normal 01/05/2024 20 - 48 [facility] RDW RBC AUTO RTO 14.5 % Normal 01/05/2024 12.1 - 16.2 [facility] PMV BLD AUTO 9.7 fL Normal 01/05/2024 7.4 - 11.4 [facility] MH MCHC RBC AUTO MCNC 32.0 g/dL Normal 01/05/2024 32 - 36 [facility] HGB BLD MCNC 11.6 g/dL Below low normal 01/05/2024 12.5 - 16 [facility] MCH RBC QN AUTO 27.8 pg Normal 01/05/2024 25 - 33 [facility] RBC NO. BLD AUTO 4.18 M/uL Below low normal 01/05/2024 4.2 - 5.4 [facility] HCT VFR BLD AUTO 36.3 % Below low normal 01/05/2024 37 - 47 [facility] MCV RBC AUTO 86.8 fL Normal 01/05/2024 78 - 100 [facility] PLATELET NO. BLD AUTO 173.0 K/uL Normal 01/05/2024 150 - 450 [facility] WBC NO. BLD AUTO 100.4 K/uL Above high normal 01/05/2024 4 - 10.5 [facility] VIT B12 SER MCNC 761.0 pg/mL Normal 01/05/2024 180 - 914 [facility] MCHC RBC AUTO MCNC 31.8 g/dL Below low normal 10/29/2023 32 - 36 [facility] HCT VFR BLD AUTO 35.5 % Below low normal 10/29/2023 37 - 47 [facility] HGB BLD MCNC 11.3 g/dL Below low normal 10/29/2023 12.5 - 16 [facility] MCH RBC QN AUTO 28.1 pg Normal 10/29/2023 25 - 33 [facility] MCV RBC AUTO 88.3 fL Normal 10/29/2023 78 - 100 [facility] RBC NO. BLD AUTO 4.02 M/uL Below low normal 10/29/2023 4.2 - 5.4 [facility] PLATELET NO. BLD AUTO 222.0 K/uL Normal 10/29/2023 150 - 450 [facility] RDW RBC AUTO RTO 14.4 % Normal 10/29/2023 12.1 - 16.2 [facility] WBC NO. BLD AUTO 90.4 K/uL Above high normal 10/29/2023 4 - 10.5 [facility] PMV BLD AUTO 9.7 fL Normal 10/29/2023 7.4 - 11.[facility] BUN [facility]PL MCNC 18.0 mg/dL Above high normal 10/29/2023 7 - 1 7 [facility] POTASSIUM SERPL SCNC 3.9 mmol/L Normal 10/29/2023 3.5 - 5.1 [facility] CHLORIDE SERPL SCNC 101.0 mmol/L Normal 10/29/2023 98 - 1 07 [facility] Glomerular filtration rate/1.73 sq M. predicted 64.0 Normal 10/29/2023 60 - [facility] GLUCOSE SERPL MCNC 75.0 mg/dL Normal 10/29/2023 70 - 199 [facility] HCO3 SER SCNC 30.0 mmol/L Normal 10/29/2023 24 - 32 [facility] AST SERPL CCNC 19.0 U/L Normal 10/29/2023 5 - [facility] BCG MCNC 4.4 g/dL Normal 10/29/2023 3.5 - 5 [facility] ALP SERPL-CCNC 103.0 U/L Normal 10/29/2023 34 - 104 [facility] PROT SERPL MCNC 6.3 g/dL Below low normal 10/29/2023 6.4 - 8.5 [facility] SODIUM SERPL SCNC 138.0 mmol/L Normal 10/29/2023 135 - 14 5 [facility] ANION GAP SERPL SCNC 7.0 mmol/L Normal 10/29/2023 5 - 14 [facility] BILIRUB SERPL MCNC 0.3 mg/dL Normal 10/29/2023 0.3 - 1 [facility] ALT SERPL CCNC 16.0 U/L Normal 10/29/2023 7 - 52 [facility] CALCIUM SERPL MCNC 9.2 mg/dL Normal 10/29/2023 8.4 - 10.2 [facility] CREAT SERPL MCNC 1.0 mg/dL Normal 10/29/2023 0.5 - 1 [facility] LDH SERPL L TO P CCNC 235.0 U/L Above high normal 10/29/2023 125 - 220 [facility] EOSINOPHIL NFR BLD MANUAL 2.0 % Normal 10/29/2023 0 - 6 [facility] POLYS NFR BLD MANUAL 2.0 % Below low normal 10/29/2023 44 - 74 [facility] MONOCYTES NFR BLD MANUAL 3.0 % Normal 10/29/2023 2 - 12 [facility] LYMPHOCYTES NFR BLD MANUAL 93.0 % Above high normal 10/29/2023 20 - 48 [facility] URATE SERPL MCNC 4.4 mg/dL Normal 10/29/2023 2.5 - 7 [facility] LYMPHOCYTES NFR BLD AUTO 87.2 % Above high normal 09/08/2023 20 - 48 [facility] IMMATURE GRANULOCYTE, ABSOLUTE 0.21 k/uL Above high normal 09/08/2023 - 0.1 [facility] NEUTROPHILS NO. BLD AUTO 5.7 K/uL Normal 09/08/2023 1.8 - 7.8 [facility] EOSINOPHIL NFR BLD AUTO 0.2 % Normal 09/08/2023 0 - 6 [facility] NEUTROPHILS NFR BLD AUTO 4.7 % Below low normal 09/08/2023 44 - 74 [facility] BASOPHILS NFR BLD AUTO 0.1 % Normal 09/08/2023 0 - 2 [facility] IMMATURE GRANULOCYTE, PERCENT 0.2 % Normal 09/08/2023 0 - 1 [facility] EOSINOPHIL NO. BLD AUTO 0.3 K/uL Normal 09/08/2023 0 - 0.5 [facility] MONOCYTES NO. BLD AUTO 9.4 K/uL Above high normal 09/08/2023 0 - 0.8 [facility] BASOPHILS IN BLOOD BY AUTOMATED COUNT 0.2 K/uL Normal 09/08/2023 0 - 0.2 [facility] MONOCYTES NFR BLD AUTO 7.6 % Normal 09/08/2023 2 - 12 [facility] LYMPHOCYTES NO. BLD AUTO 107.2 K/uL Above high normal 09/08/2023 1 - 3.2 [facility] MCH RBC QN AUTO 28.9 pg Normal 09/08/2023 25 - 33 [facility] WBC NO. BLD AUTO 123.0 K/uL Above high normal 09/08/2023 4 - 10.5 [facility] RBC NO. BLD AUTO 3.88 M/uL Below low normal 09/08/2023 4.2 - 5.4 [facility] PMV BLD AUTO 9.6 fL Normal 09/08/2023 7.4 - 11.4 [facility] RBC AUTO MCNC 32.2 g/dL Normal 09/08/2023 32 - 36 [facility] HCT VFR BLD AUTO 34.8 % Below low normal 09/08/2023 37 - 47 [facility] PLATELET NO. BLD AUTO 221.0 K/uL Normal 09/08/2023 150 - 450 [facility] RDW RBC AUTO RTO 14.3 % Normal 09/08/2023 12.1 - 16.2 [facility] HGB BLD MCNC 11.2 g/dL Below low normal 09/08/2023 12.5 - 16 [facility] MCV RBC AUTO 89.7 fL Normal 09/08/2023 78 - 100 [facility] EOSINOPHIL NO. BLD AUTO 0.2 K/uL Normal 07/30/2023 0 - 0.5 [facility] BASOPHILS IN BLOOD BY AUTOMATED COUNT 0.3 K/uL Above high normal 07/30/2023 0 - 0.2 [facility] LYMPHOCYTES NO. BLD AUTO 89.5 K/uL Above high normal 07/30/2023 1 - 3.2 [facility] NEUTROPHILS NO. BLD AUTO 5.1 K/uL Normal 07/30/2023 1.8 - 7.8 [facility] EOSINOPHIL NFR BLD AUTO 0.2 % Normal 07/30/2023 0 - 6 [facility] DIFFERENTIAL TYPE AUTOMATED Normal 07/30/2023 [facility] LYMPHOCYTES NFR BLD AUTO 92.3 % Above high normal 07/30/2023 20 - 48 [facility] MONOCYTES NFR BLD AUTO 1.9 % Below low normal 07/30/2023 2 - 12 [facility] BASOPHILS NFR BLD AUTO 0.3 % Normal 07/30/2023 0 - 2 [facility] NEUTROPHILS NFR BLD AUTO 5.3 % Below low normal 07/30/2023 44 - 74 [facility] MONOCYTES NO. BLD AUTO 1.9 K/uL Above high normal 07/30/2023 0 - 0.8 [facility] WBC NO. BLD AUTO 97.0 K/uL Above high normal 07/30/2023 4 - 10.5 [facility] MCH RBC QN AUTO 29.1 pg Normal 07/30/2023 25 - 33 [facility] HCT VFR BLD AUTO 38.3 % Normal 07/30/2023 37 - [facility] MCNC 12.3 g/dL Below low normal 07/30/2023 12.5 - 16 [facility] MCV RBC AUTO 90.6 fL Normal 07/30/2023 78 - 100 [facility] PMV BLD [facility]O 8.2 fL Normal 07/30/2023 7.4 - 11.4 [facility] RDW RBC AUTO RTO 14.4 % Normal 07/30/2023 12.1 - 16.2 [facility] MCHC RBC AUTO MCNC 32.1 g/dL Normal 07/30/2023 32 - 36 [facility] PLATELET NO. BLD AUTO 216.0 K/uL Normal 07/30/2023 150 - 450 [facility] RBC NO. BLD AUTO 4.22 M/uL Normal 07/30/2023 4.2 - 5.4 [facility] SPECIMEN SENT TO [employer] ON 06.18.23 Normal 06/23/2023 [facility] POLYCHROMASIA OCCASIONAL Normal 06/16/2023 [facility] LYMPHOCYTES NFR BLD MANUAL 92.0 % Above high normal 06/16/2023 20 - 48 [facility] MONOCYTES NFR BLD MANUAL 1.0 % Below low normal 06/16/2023 2 - 12 [facility] POLYS NFR BLD MANUAL 7.0 % Below low normal 06/16/2023 44 - 74 [facility] [place] PRESENT Normal 06/16/2023 [facility] DIFFERENTIAL TYPE MANUAL Normal 06/16/2023 [facility] MCHC RBC AUTO MCNC 32.2 g/dL Normal 06/16/2023 32 - 36 [facility] HGB BLD MCNC 12.4 g/dL Below low normal 06/16/2023 12.5 - 16 [facility] HCT VFR BLD AUTO 38.6 % Normal 06/16/2023 37 - 47 [facility] RDW RBC AUTO RTO 14.6 % Normal 06/16/2023 12.1 - 16.2 [facility] PMV BLD AUTO 8.3 fL Normal 06/16/2023 7.4 - 11.4 [facility] PLATELET NO. BLD AUTO 188.0 K/uL Normal 06/16/2023 150 - 450 [facility] WBC NO. BLD AUTO 99.7 K/uL Above high normal 06/16/2023 4 - 10.5 [facility] MCV RBC AUTO 89.4 fL Normal 06/16/2023 78 - 100 [facility] MCH RBC QN AUTO 28.8 pg Normal 06/16/2023 25 - 33 CTT HS RBC NO. BLD AUTO 4.31 M/uL Normal 06/16/2023 4.2 - 5.4 [facility] LDH SERPL L TO P CCNC 206.0 U/L Normal 06/16/2023 125 - 220 [facility] ANION GAP SERPL SCNC 9.0 mmol/L Normal 06/16/2023 5 - 14 [facility] ALBUMIN SERPL BCG MCNC 4.4 g/dL Normal 06/16/2023 3.5 - 5 [facility] Glomerular filtration rate/1.73 sq M. predicted 84.0 Normal 06/16/2023 60 - [facility] GLUCOSE SERPL MCNC 78.0 mg/dL Normal 06/16/2023 70 - 199 [facility] ALT SERPL CCNC 16.0 U/L Normal 06/16/2023 7 - 52 [facility] CREAT SERPL MCNC 0.8 mg/dL Normal 06/16/2023 0.5 - 1 [facility] POTASSIUM [facility] SCNC 4.3 mmol/L Normal 06/16/2023 3.5 - 5.1 [facility] AST SERPL CCNC 16.0 U/L Normal 06/16/2023 5 - 40 [facility] CALCIUM SERPL MCNC 9.1 mg/dL Normal 06/16/2023 8.4 - 10.2 [facility] PROT SERPL MCNC 6.6 g/dL Normal 06/16/2023 6.4 - 8.5 [facility] CHLORIDE SERPL SCNC 106.0 mmol/L Normal 06/16/2023 98 - 1 07 [facility] ALP SERPL-CCNC 95.0 U/L Normal 06/16/2023 34 - 104 [facility] SODIUM SERPL SCNC 141.0 mmol/L Normal 06/16/2023 135 - 14 5 [facility] HCO3 SER SCNC 26.0 mmol/L Normal 06/16/2023 24 - 32 [facility] BILIRUB SERPL MCNC 0.3 mg/dL Normal 06/16/2023 0.3 - 1 [facility] BUN SERPL MCNC 17.0 mg/dL Normal 06/16/2023 7 - 17 [facility] CREAT SERPL MCNC 0.9 mg/dL Normal 03/11/2023 0.5 - 1 [facility] ALP SERPL-CCNC 94.0 U/L Normal 03/11/2023 34 - 104 [facility] CHLORIDE SERPL SCNC 102.0 mmol/L Normal 03/11/2023 98 - 1 07 [facility] PROT SERPL MCNC 6.8 g/dL Normal 03/11/2023 6.4 - 8.5 [facility] ALBUMIN SERPL BCG MCNC 4.3 g/dL Normal 03/11/2023 3.5 - 5 [facility] ANION GAP SERPL SCNC 7.0 mmol/L Normal 03/11/2023 5 - 14 [facility] ALT SERPL CCNC 18.0 U/L Normal 03/11/2023 7 - 52 [facility] Glomerular filtration rate/1.73 sq M. predicted 73.0 Normal 03/11/2023 60 - [facility] POTASSIUM SERPL SCNC 4.1 mmol/L Normal 03/11/2023 3.5 - 5.1 [facility] BUN SERPL MCNC 18.0 mg/dL Above high normal 03/11/2023 7 - 1 7 [facility] BILIRUB SERPL MCNC 0.3 mg/dL Normal 03/11/2023 0.3 - 1 [facility] GLUCOSE SERPL MCNC 77.0 mg/dL Normal 03/11/2023 70 - 199 [facility] AST SERPL CCNC 18.0 U/L Normal 03/11/2023 5 - 40 [facility] HCO3 SER SCNC 28.0 mmol/L Normal 03/11/2023 24 - 32 CTT [facility] CALCIUM SERPL MCNC 9.3 mg/dL Normal 03/11/2023 8.4 - 10.2 [facility] SODIUM SERPL SCNC 137.0 mmol/L Normal 03/11/2023 135 - 14 5 [facility] OVALOCYTES OCCASIONAL Normal 03/12/2023 [facility] MACROCYTES PRESENT Normal 03/12/2023 [facility] POLYS NFR BLD MANUAL 4.0 % Below low normal 03/12/2023 44 - 74 [facility] EOSINOPHIL NFR BLD MANUAL 2.0 % Normal 03/12/2023 0 - 6 [facility] LYMPHOCYTES NFR BLD MANUAL 94.0 % Above high normal 03/12/2023 20 - 48 [facility] DIFFERENTIAL TYPE MANUAL Normal 03/12/2023 C [facility] PMV BLD AUTO 8.0 fL Normal 03/11/2023 7.4 - 11.4 [facility] RBC NO. BLD AUTO 4.37 M/uL Normal 03/11/2023 4.2 - 5.4 CT [facility] MCH RBC QN AUTO 28.4 pg Normal 03/11/2023 25 - 33 CTT HS HGB BLD MCNC 12.4 g/dL Below low normal 03/11/2023 12.5 - [facility] RBC AUTO 89.7 fL Normal 03/11/2023 78 - 100 [facility] H PLATELET NO. BLD AUTO 220.0 K/uL Normal 03/11/2023 150 - 450 [facility] WBC NO. BLD AUTO 93.6 K/uL Above high normal 03/11/2023 4 - 10.5 [facility] MCHC RBC AUTO MCNC 31.6 g/dL Below low normal 03/11/2023 32 - 36 [facility] HCT VFR BLD AUTO 39.2 % Normal 03/11/2023 37 - 47 [facility] RDW RBC AUTO RTO 15.2 % Normal 03/11/2023 12.1 - 16.[facility] URATE SERPL MCNC 4.4 mg/dL Normal 03/11/2023 2.5 - 7 [facility] LDH SERPL L TO P CCNC 197.0 U/L Normal 03/11/2023 125 - 220 [facility] History of Medication Use Medication Directions Dispensed Refills Start Date End Date Stat us iopamidol (ISOVUE-370) 76 % injection 100 mL 100 mL, Intravenous, IMG once as needed, contrast, Starting on Thu01/12/24 at 0843, For 1 dose, Radiology Contrast 01/12/2024 01/12/2024 completed atorvastatin (LIPITOR) tablet 20 mg TAKE 1 TABLET BY MOUTH EVERY DAY 07/26/2023 active atorvastatin (LIPITOR) 20 mg tablet Take 1 tablet (20 mg total) by mouth 1 (one) time each day. 04/13/2023 active atorvastatin (LIPITOR) 20 mg tablet Take 1 tablet (20 mg total) by mouth 1 (one) time each day. 04/13/2023 active amitriptyline (ELAVIL) 25 mg tablet Take 2 tablets (50 mg total) by mouth at bedtime. 06/26/2017 active amitriptyline (ELAVIL) 25 mg tablet Take 2 tablets (50 mg total) by mouth at bedtime. 06/26/2017 active amitriptyline (ELAVIL) 25 mg tablet Take 2 tablets (50 mg total) by mouth at bedtime. 06/26/2017 active amitriptyline (ELAVIL) tablet 25 mg TAKE 2 TABLETS BY MOUTH ONCE A DAY AT BEDTIME 06/26/2017 active cetirizine (ZyrTEC) 10 mg tablet Take 1 tablet (10 mg total) by mouth 1 (one) time each day. active cetirizine (ZyrTEC) 10 mg tablet Take 1 tablet (10 mg total) by mouth 1 (one) time each day. active cetirizine (ZyrTEC) 10 MG tablet Take 1 tablet (10 mg total) by mouth daily. active multivitamin (MULTIPLE VITAMINS ORAL) Take by mouth 1 (one) time each day. active traMADoL (ULTRAM) 50 mg tablet Take 1 tablet (50 mg total) by mouth every 6 hours as needed. Max Daily Amount: 200 mg active Allergies Allergen Reaction Severity Comment Documented Date Source Statu s PROCHLORPERAZINE NAUSEA ONLY 08/04/2018 [facility] AN active Problems Problem Status Onset Date Problem Type Date of Resolution Source Mixed hyperlipidemia active 2017-05-26 ProblemAct [facility] Fibromyalgia active 2018-07-21 ProblemAct [facility] SFRAN CLL (chronic lymphocytic leukemia) (CMS/HCC V24, CMS/HCC V28) active 2018-12-02 ProblemAct [facility] Cigarette smoker active 2020-09-12 ProblemAct C T_THSFRAN Prediabetes active 2023-03-23 ProblemAct [facility]S MARIA FERNANDA Iron deficiency anemia due to chronic blood loss active EncounterDiagnosisAct CT_THNEMG Iron deficiency anemia, unspecified iron deficiency anemia type active EncounterDiagnosisAct [facility] H Encounters Encounter Type Encounter Reason Primary Diagnosis Location Date Ambulatory Chronic lymphocytic leukemia of B-cell type not having achieved remission ([facility] V24, [facility] V28) Chronic lymphocytic leukemia of B-cell type not having achieved remission ([facility] V24, [facility] V28) [facility] 11/15/2024 Ambulatory Chronic lymphocytic leukemia of B-cell type not having achieved remission ([facility] V24, [facility] V28) Chronic lymphocytic leukemia of B-cell type not having achieved remission ([facility] V24, [facility] V28) [facility] 11/15/2024 Ambulatory Chronic lymphocytic leukemia of B-cell type not having achieved remission ([facility] V24, [facility] V28) Chronic lymphocytic leukemia of B-cell type not having achieved remission ([facility] V24, [facility] V28) [facility] 08/30/2024 Ambulatory Chronic lymphocytic leukemia of B-cell type not having achieved remission ([facility] V24, [facility] V28) Chronic lymphocytic leukemia of B-cell type not having achieved remission ([facility] V24, [facility] V28) [facility] 08/30/2024 Ambulatory [facility] 03/01/2024 Ambulatory [facility] 02/23/2024 Ambulatory Chronic lymphocytic leukemia of B-cell type not having achieved remission Chronic lymphocytic leukemia of B-cell type not having achieved remission [facility] 02/19/2024 Ambulatory Chronic lymphocytic leukemia of B-cell type not having achieved remission Chronic lymphocytic leukemia of B-cell type not having achieved remission [facility] 01/14/2024 Ambulatory Chronic lymphocytic leukemia of B-cell type not having achieved remission Chronic lymphocytic leukemia of B-cell type not having achieved remission [facility] 01/12/2024 Ambulatory Chronic lymphocytic leukemia of B-cell type not having achieved remission Chronic lymphocytic leukemia of B-cell type not having achieved remission [facility] 01/05/2024 Ambulatory Chronic lymphocytic leukemia of B-cell type not having achieved remission Chronic lymphocytic leukemia of B-cell type not having achieved remission [facility] 01/05/2024 Ambulatory Chronic lymphocytic leukemia of B-cell type not having achieved remission Chronic lymphocytic leukemia of B-cell type not having achieved remission [facility] 10/29/2023 Ambulatory Chronic lymphocytic leukemia of B-cell type not having achieved remission Chronic lymphocytic leukemia of B-cell type not having achieved remission [facility] 10/29/2023 Ambulatory Chronic lymphocytic leukemia of B-cell type not having achieved remission Chronic lymphocytic leukemia of B-cell type not having achieved remission [facility] 09/08/2023 Ambulatory Chronic lymphocytic leukemia of B-cell type not having achieved remission Chronic lymphocytic leukemia of B-cell type not having achieved remission [facility] 09/08/2023 Ambulatory Chronic lymphocytic leukemia of B-cell type not having achieved remission Chronic lymphocytic leukemia of B-cell type not having achieved remission [facility] 07/30/2023 Ambulatory Chronic lymphocytic leukemia of B-cell type not having achieved remission Chronic lymphocytic leukemia of B-cell type not having achieved remission [facility] 06/18/2023 Ambulatory Chronic lymphocytic leukemia of B-cell type not having achieved remission Chronic lymphocytic leukemia of B-cell type not having achieved remission [facility] 06/18/2023 Ambulatory Chronic lymphocytic leukemia of B-cell type not having achieved remission Chronic lymphocytic leukemia of B-cell type not having achieved remission [facility] 06/16/2023 Ambulatory Chronic lymphocytic leukemia of B-cell type not having achieved remission Chronic lymphocytic leukemia of B-cell type not having achieved remission [facility] 03/13/2023 Ambulatory Chronic lymphocytic leukemia of B-cell type not having achieved remission Chronic lymphocytic leukemia of B-cell type not having achieved remission [facility] 03/11/2023 Care Team Organization Name Specialty Phone Email Start Date End [facility] 2024 [facility] 02/25/2024 [facility] 02/23/2024 [facility] 05/10/2023 [facility] 202211/01/2024 [facility] Primary [facility] 09/3009/30/2022
--- OUTSIDE RECORDS SUMMARY | 2024-12-14 07:53 | XMS_ITS | Clinical Summary ---
Author Organization [facility] Address [address] [place] [id number] Care Team Providers Care Coal Grader Name Role Phone Jus Reed MD Primary [...] 71 01/14/2024 12:05 PM EDT Temperature 36.2 C (97.2 F) 01/14/2024 12:05 PM EDT Respiratory Rate 18 01/14/2024 12:05 PM EDT [...] 1-dose series) 2021 BMI Counseling 05/29/2023 05/29/2022, 05/09/2021, 10/05/2020, Additional history exists Preventative Health Evaluation 03/23/2024 03/23/2023, 02/11/2022, 09/12/2020, Additional history exists Influenza Vaccine (#1) 2024 Hepatitis B Vaccines Aged Out No long er eligible based on patient's age to complete this topic RSV Ped < 20 months Aged Out No longe r eligible based on patient's age to complete this topic Advance Directives For more information, please contact: [phone] Latest Code Status on File Code Status Date Activated Date Inactivated Comments Full Code 08/06/2018 5:40 AM 08/06/2018 8:14 PM This code status was ascertained in the following way: discussion with patient . Care Teams Coal Grader Relationship Specialty Start Date End Date Jus Reed MD PCP - General Internal Medicine 06/27/16
--- OUTSIDE RECORDS SUMMARY | 2024-12-14 07:53 | XMS_ITS | Clinical Summary ---
Author Organization [facility] [address] Address [address] [place] [address] Phone Care Team Providers Care Acetylene Cutter Name Role Phone Jus Reed MD Primary Care Provider Allergies Active Allergy Reactions Criticality Noted Date [...] by mouth every 6 hours as needed. Active multivitamin (MULTIPLE VITAMINS ORAL) Take by mouth 1 (one) time each day. Active Active Problems Problem Noted Date Diagnosed Date Prediabetes 03/23/2023 Cigarette smoker 09/12/2020 CLL (chronic lymphocytic pepe kemia) (CMS/HCC V24, CMS/HCC V28) 12/02/2018 Fibromyalgia 07/21/2018 Mixed hyperlipidemia 05/26/2017 Encounters Date Type Department Care Team Description 11/15/2024 4:00 PM EDT Office Visit [facility] [place] [address] [place] [address] Razia Everett MD CLL (chronic lymphocytic leukemia) ([facility] V24, [facility] V28) (Primary Dx); Iron deficiency anemia, unspecified iron deficiency anemia type 11/15/2024 3:30 PM EDT Clinic Lab Collection [facility] [address] [place] [id number] CLL (chronic lymphocytic leukemia) ([facility] V24, [facility] V28) from Last 3 Months Surgical History Surgery Date Site/Laterality Comments SHOULDER SURGERY 2000 Left PROCEDURE:SHOULDER SURGERY;COMMENT:tumor excision FOOT NEUROMA SURGERY 2002 Left PROCEDURE:FOOT NEUROMA SURGERY COLONOSCOPY PROCEDURE:COLONOSCOPY SALPINGOOPHORECTOMY 08/06/2018 N/A PROCEDURE:LAPAROSCOPIC SALPINGOOPHERECTOMY;COMMENT:Procedure: LAPAROSCOPY SALPINGO OOPHERECTOMY; Surgeon: Lucie Quezada MD; Location: [facility] MAIN OPERATING ROOM; Service: Gynecology; Laterality: N/A; HYSTEROSCOPY 08/06/2018 N/A PROCEDURE:HYSTEROSCOPY;COMMENT:Procedu re: HYSTEROSCOPY D&C; Surgeon: Lucie Quezada MD; Location: [facility] MAIN OPERATING ROOM; Service: Gynecology; Laterality: N/A; Medical History Medical History Date Comments Fibromyalgia DX:Fibromyalgia Hypercholesteremia DX:Hyperchole steremia GERD (gastroesophageal reflux disease) DX:GERD (gastroesophageal reflux disease) Depression DX:Depression Lymphoma ([facility] V24, [facility] V28) DX:Lymphoma ([facility]) Family History Medical History Relation Name Comments [...] Sign Reading Time Taken Comments Blood Pressure 129/52 11/15/2024 3:48 PM EDT Pulse 78 11/15/2024 3:48 PM EDT Temperature 36.3 C (97.3 F) 11/15/2024 3:48 PM EDT Respiratory Rate 18 11/15/2024 3:48 PM EDT Oxygen Saturation 93% 11/15/2024 3:48 PM EDT Inhaled Oxygen Concentration - - Weight 56.4 kg (124 lb 6.4 oz) 11/15/2024 3:48 P M EDT Height 160 cm (5' 3 ) 03/23/2023 2:22 PM EST Body Mass Index 22.04 03/23/2023 2:22 PM EST Plan of Treatment Upcoming Encounters Date Type Department Care Team (Late st Contact Info) Description 02/16/2025 4:00 PM EDT Clinic Lab Collection [facility] [address] [place] [address] 02/16/2025 4:20 PM EDT Office Visit [facility] [address] [place] [phone] Razia Everett MD [address] [place] [phone] Health Maintenance Due Date Last Done Comments Breast Cancer Screening 1961 COVID-19 Vaccine (#1) 1966 DTaP,Tdap,and Td Vaccines (1 - Tdap) 1980 Pneumococcal Vaccine: 50+ Years (1 of 2 - PCV) 1980 Zoster Vaccines (1 of 2) 1980 Cervical Cancer Screening: P ap Smear 10/12/2020 10/12/2017, 10/12/2017 Colorectal Cancer Screening: Colonoscopy 03/27/2022 HIV Screening 03/27/2022 Hepatitis C Screening 03/27/2022 Social Influencers of Health Screening 03/27/2022 Depression Screening 04/20/2024 Influenza Vaccine (#1) 2024 Cholesterol Screening (Lipid Panel) 03/16/2028 03/16/2023 RSV Immunization Adult Patients (1 - 1-dose 75+ series) 2036 HIB [...] age to complete this topic Meningococcal B Vaccine Aged Out No l onger eligible based on patient's age to complete this topic RSV Immunization Patients Under 20 months Aged Out No longer eligible b ased on patient's age to complete this topic Varicella Vaccines Aged Out No longer eligible based on patient's age to complete this topic Procedures Procedure Name Priority Date/Time Associated Diagnosis Comments MANUAL DIFFERENTIAL Routine 11/15/2024 3 :45 PM EDT CLL (chronic lymphocytic leukemia) ([facility] V24, [facility] V28) CBC WITH AUTO DIFFERENTIAL Routine 11/15/2024 3:45 PM EDT CLL (chronic lymphocytic leukemia) ([facility] V24, [facility] V28) LACTATE DEHYDROGENASE Routine 11/15/2024 3:45 PM EDT CLL (chronic lymphocytic leukemia) ([facility] V24, [facility] V28) COMPREHENSIVE METABOLIC PANEL Routine 11/15/2024 3:45 PM EDT CLL (chronic lymphocytic leukemia) ([facility] V24, [facility] V28) CBC AND DIFFERENTIAL Routine 11/15/2024 3:45 PM EDT CLL (chronic lymphocytic leukemia) ([facility] V24, [facility] V28) LIPID PANEL Routine 03/16/2023 PAP SMEAR Routine 10/12/2017 4:00 PM EDT from Last 3 Months or Most Recently Relevant to Health Maintenance Results * (ABNORMAL) CBC auto differential (11/15/2024 3:45 PM EDT) WBC 156.7(HH) 4.0 - 10.5 K/[facility] LAB HEMETOLOGY METHOD 11/15/2024 4:34 PM EDT [facility] RBC 4.06(L) 4.20 - 5.40 M/mcL LAB HEMETOLOGY METHOD 11/15/2024 4:34 PM EDT [facility] Hemoglobin 11.9(L) 12.5 - 16.0 g/dL LAB HEMETOLOGY METHOD 11/15/2024 4:34 PM EDT [facility] Hematocrit 36.3(L) 37.0 - 47.0 % LAB HEMETOLOGY METHOD 11/15/2024 4:34 PM EDT [facility] MCV 89.4 78.0 - 100.0 FL LAB HEMETOLOGY METHOD 11/15/2024 4:34 PM EDT [facility] MCH 29.3 25.0 - 33.0 pcg LAB HEMETOLOGY METHOD 11/15/2024 4:34 PM EDT [facility] MCHC 32.8 32.0 - 36.0 g/dL LAB HEMETOLOGY METHOD 11/15[facility]2024 [facility] RDW 13.8 12.1 - 16.2 % LAB HEMETOLOGY METHOD 11/15/2024 4:[facility] Platelets 222 150 - 450 K/mcL LAB HEMETOLOGY METHOD 11/15/2024 4:34 PM EDT [facility] MPV 10.1 7.4 - 11.4 FL LAB HEMETOLOGY METHOD 11/15/2024 4:[facility] Blood Venous blood specimen / Unknown Venipuncture / Unknown 11/15/2024 3:45 PM EDT 11/15/2024 3:56 PM EDT us Razia Everett MD LAB BLOOD ORDERABLES Fin al Result [facility] [address] [place] [address], [place] * (ABNORMAL) Manual differential (11/15/2024 3:45 PM EDT) Neutrophils Percent Manual 4.0(L) 44.0 - 74.0 % 11/15/2024 4:34 PM EDT [facility] Lymphocytes Percent Manual 96.0(H) 20.0 - 48.0 % 11/15/2024 4:34 PM EDT [facility] Comment:Few Large lymphs not ed Neutrophils Absolute Manual 6.27 1.80 - 7.80 K/mcL 11/15/2024 4:34 PM EDT [facility] Lymphocytes Absolute Manual 150.43(H) 1.00 - 3.20 K/mcL 11/15/2024 4:34 PM EDT [facility] RBC Morphology RBC Morphology appears normal 11/15/2024 4:34 PM EDT [facility] Platelet Estimate Platelets Appear Normal Platelets Appear Normal 11/15/2024 4:34 PM EDT [facility] Blood Venous blood specimen / Unknown Venipuncture / Unknown 11/15/2024 3:45 PM EDT 11/15/2024 3:56 PM EDT us Razia Everett MD LAB BLOOD ORDERABLES Fin al Result [facility] [address] [place] [address], [place] * (ABNORMAL) Lactate dehydrogenase (11/15/2024 3:45 PM EDT) LDH 242(H) 125 - 220 unit/L LAB CHEMISTRY METHOD 11/15/2024 6:45 PM EDT [facility] Blood Venous blood specimen / Unknown Venipuncture / Unknown 11/15/2024 3:45 PM EDT 11/15/2024 3:56 PM EDT Razia Everett MD LAB BLOOD ORDERABLES Fin al Result [facility] [address] [place] [address], * (ABNORMAL) Comprehensive metabolic panel (11/15/2024 3:45 PM EDT) Sodium 139 135 - 145 mmol/L LAB CHEMISTRY METHOD 11/15/2024 6:45 PM EDT [facility] Potassium 4.0 3.5 - 5.1 mmol/L LAB CHEMISTRY METHOD 11/15/2024 6:45 PM EDT [facility] Chloride 103 98 - 107 mmol/L LAB CHEMISTRY METHOD 11/15/2024 6:45 PM EDT [facility] CO2 27 24 - 32 mmol/L LAB CHEMISTRY METHOD 11/15/2024 6:45 PM EDT [facility] Anion Gap 9 5 - 14 LAB CHEMISTRY METHOD 11/15/2024 6:45 PM EDT [facility] Glucose 113 70 - 199 mg/dL LAB CHEMISTRY METHOD 11/15/2024 6:45 PM EDT [facility] BUN 16 7 - 17 mg/dL LAB CHEMISTRY METHOD 11/15/2024 6:45 PM EDT [facility] Creatinine 0.90 0.50 - 1.00 mg/dL LAB CHEMISTRY METHOD 11/15/2024 6:45 PM EDT [facility] eGFR 72 >=60 mL/min/1. 73m2 LAB CHEMISTRY METHOD 11/15/2024 6:45 PM EDT [facility] Comment:Calculation based on the Chronic Kidney Disease Epidemiology Collaboration (CKD-EPI) equation refit without adjustment for race. BUN/Creatinine Ratio 17.8 12.0 - 20.0 LAB CHEMISTRY METHOD 11/15/2024 6:45 PM EDT [facility] Calcium 9.1 8.4 - 10.2 mg/dL LAB CHEMISTRY METHOD 11/15/2024 6:45 PM EDT [facility] AST (SGOT) 19 5 - 40 unit/L LAB CHEMISTRY METHOD 11/15/2024 6:45 PM EDT [facility] ALT (SGPT) 15 7 - 52 unit/L LAB CHEMISTRY METHOD 11/15/2024 6:45 PM EDT [facility] Alkaline Phosphatase 110(H) 34 - 104 unit/L LAB CHEMISTRY METHOD 11/15/2024 6:45 PM EDT [facility] Total Protein 6.5 6.4 - 8.5 g/dL LAB CHEMISTRY METHOD 11/15/2024 6:45 PM EDT [facility] Albumin 4.5 3.5 - 5.0 g/dL LAB CHEMISTRY METHOD 11/15/2024 6:45 PM EDT [facility] Total Bilirubin 0.3 0.3 - 1.0 mg/dL LAB CHEMISTRY METHOD 11/15/2024 6:45 PM EDT [facility] Blood Venous blood specimen / Unknown Venipuncture / Unknown 11/15/2024 3:45 PM EDT 11/15/2024 3:56 PM EDT Razia Everett MD LAB BLOOD ORDERABLES Fin al Result [facility] [address] [place] [address], * (ABNORMAL) Lipid panel (03/16/2023) Triglycerides 164 >=150 mg/dL Cholesterol 173(A) >=200 mg/dL HDL 62 >=50 mg/dL LDL Cholesterol 85(A) >=100 mg/dL Blood Venous blood specimen / Unknown Historical Provider LAB BLOOD ORDERABLES Marbella mayur Result * Pap smear (10/12/2017 4:00 PM EDT) Case Results Patient Name: JOSE HANNA MR#: [id number] Collected Date: 10/12/2017 Reported Date: 10/19/2017 Specimen #[id number] Final Diagnosis Satisfactory for evaluation. Endocervical transformation zone component present. Negative for Intraepithelial Lesion or Malignancy. Reactive cellular changes noted. Clinical Diagnosis Z01.419 Source: A: ThinPrep Imaged Pap Cervical-SC B: HPV Mandatory Electronically Signed Out Franca Gay MD Addenda/Procedures HPV DNA PROBE, MANDATORY Ordered: 10/13/2017 Reported: 10/14/2017 HPV HIGH RISK: NEGATIVE None of the following High Risk human papillomavirus (HPV) types has been detected: 16,18,31,33,35,39, 45,51,52,56,58,59, 66,and 68. The Aptima HPV nucleic acid amplification assay manufactured by [employer] and performed on the AutoRadio System was used for the qualitative detection [...] liquid based specimens is performed by the ThinPrep Imaging System unless otherwise stated. Test Performed by: [address] [address] Hiram López M.D. Director HISTORICAL TESTING LAB RESULTING AGENCY Comment:MR#: [id number] 10/12/2017 4:00 PM EDT Irma Whittington MD LAB CYTOLOGY ORDERABLES Final Result [facility] RES[facility] from Last 3 Months or Most Recently Relevant to Health Maintenance Insurance [facility] Care Teams Acetylene Cutter Relationship Specialty Start Date End Date Jus Reed MD [address] [place] [address] PCP - General Internal Medicine 07/22/24
--- NOTE | 2024-12-14 08:00 | A.OFFVIS_ITS ---
Vital Signs 12/14/24 08:08 Height 5 ft 2.5 in Weight 123 lb 0.287 oz BMI 22.1 BP 115/58 L Blood Pressure Location Rt brachial Position Sitting Pulse 71 Pulse Source Pulse Oximeter Pulse Oximetry (%) 98 Oxygen Delivery Method Room Air Intake Visit Reasons: FMS Intake Note: Patient presents for FMS follow up. Allergies prochlorperazine (From Compazine) Allergy (Verified 12/14/24 08:08) Nausea HPI Comments Details: Patient is a 64-year-old female with hyperlipidemia, polyarticular osteoarthritis, CLL and fibromyalgia who is here today for follow up Interval History: Patient last seen 06/15/24 with me - On Tramadol 50mg q6hr - Has not started treatment for CLL however her neutrophils have been decreasing and it is likely that she will start treatment soon. - With respect to her fibromyalgia she continues to have widespread pain. No pr olonged morning stiffness or swelling reported. - No changes made to medications Today - On Tramadol 50mg q6hr - Still has not started treatment for CLL - FM stable Rheumatologic History: Polyarticular osteoarthritis and fibromyalgia Current Rheumatology Medication(s): Tramadol 50 mg q.6 hours [facility] Medical History Chronic lymphocytic leukemia Fibromyalgia Surgical History S/P removal of left ovary Hx of tubal ligation Social History Alcohol intake: never Patient Tobacco Use Status: Current everyday Tobacco user Cigarettes Per Day: 10 Years Smoked: 20 Review of Systems Const Details: Review of Systems Constitutional: Denies fever, chills, weight loss ENT: Denies vision changes, eye pain or eye redness, dental caries, dry mouth GI: Denies nausea, vomiting, diarrhea, abdominal pain, change in BM Pulm: Denies SOB, VERGARA, hemoptysis, wheezing Cards: Denies chest pain, palpitations Skin: Denies Raynaud's, rash, nail changes, photosensitivity, [employer]: Denies headaches, weakness, paresthesias, recurrent falls MSK: as per HPI All other systems reviewed and are unremarkable except noted above Physical Exam Exam Exam: Vital signs reviewed Physical Examination CONSTITUITIONAL Patient alert and cooperative. Well appearing and in no apparent painful distress MSK Hands * Right Hand: Able to make a fist. No swelling or tenderness to palpation of the MCPs, PIPs or DIPs. * Left Hand: Able to make a fist. No swelling or tenderness to palpation of the MCPs, PIPs or DIPs. * Herbedens nodes noted bilaterally Wrists * Right Wrist: Full ROM to flexion and extension. No swelling or TTP * Left Wrist: Full ROM to flexion and extension. No swelling or TTP Elbows * Right Elbow: Full ROM. No swelling or TTP. No TTP of the medial epicondyle. No TTP of the lateral epicondyle * Left Elbow: Full ROM. No swelling or TTP. No TTP of the medial epicondyle. No TTP of the lateral epicondyle Shoulders * Right shoulder: Full ROM. No swelling noted. No TTP of the AC joint. No TTP of the subacromial bursa. No TTP of the posterior shoulder * Left shoulder: Full ROM. No swelling noted. No TTP of the AC joint. No TTP of the subacromial bursa. No TTP of the posterior shoulder Knees * Right knee: Full ROM. No swelling noted. No TTP of the knee joint line. No TTP of pes anserine bursa * Left knee: Full ROM. No swelling noted. No TTP of the knee joint line. No TTP of pes anserine bursa. * Crepitations felt bilaterally Ankles * Right ankle: Good ankle dorsiflexion and plantar flexion. No swelling. No TTP of the ankle joint * Left ankle: Good ankle dorsiflexion and plantar flexion. No swelling. No TTP of the ankle joint Feet * Right foot: Negative squeeze test * Left foot: Negative squeeze test Tender points? * Tenderness to palpation of the bilateral trapezius, anterior costochondral junctions, bilateral suboccipital muscle insertions Vital Signs: Last Vital Signs Pulse 71 12/14/24 08:08 BP 115/58 L 12/14/24 08:08 Pulse Ox 98 12/14/24 08:08 Oxygen Delivery Method Room Air 12/14/24 08:08 BMI result Body Mass Index 22.1 Results Reviewed Results Reviewed: No recent labs to review Assessment & Plan Assessment & Plan (1) Fibromyalgia: Code(s): M79.7 - Fibromyalgia Category: Medical Plan: #Fibromyalgia Patient is a 64-year-old female with CLL, polyarticular osteoarthritis and fibromyalgia here today for follow up. Patient is currently stable on tramadol Plan - Tramadol 50mg PO q6 hours - RTC 6 months - No need for labs as she follows with Chart Snatcher (2) Osteoarthritis of hands, bilateral: Code(s): M19.041 - Primary osteoarthritis, right hand; M19.042 - Primary osteoarthritis, left hand Qualifiers: Osteoarthritis type: primary Qualified Code(s): M19.041 - Primary osteoarthritis, right hand; M19.042 - Primary osteoarthritis, left hand Plan: #Primary OA bilateral hands Patient with primary osteoarthritis involving bilateral hands as evidenced by Heberden and Casandra's nodes of the hands. Recommended topical diclofenac 4 times a day and using copper gloves Plan - Topical diclofenac 1% qid - Copper gloves Plan I spent 20 minutes reviewing the record and labs, taking a history, examining the patient, discussing the treatment plan and documenting in the medical record Coding Level of Care Code Est Pt Level 3 (29433) Diagnoses Fibromyalgia M79.7 Primary osteoarthritis of both hands M19.041; M19.042 Osteoarthritis type: primary
[2024-12-14 08:08] VITALS: BP 115/58; PULSE 71; O2SAT 98; BMI 22.1
== END 2024-12-14 08:44 | disposition home or self-care (01) ==
LOC: HO.RHES 07:51
PROVIDERS: PCP Specialist; Visit Provider Student in an Organized Health Care Education/Training Program
DX: M79.7 Fibromyalgia (principal); M19.041 Primary osteoarthritis, right hand; M19.042 Primary osteoarthritis, left hand
CPT/HCPCS: 99213